=== PATIENT | female | born 1980 | race African-American/Black ===

== ENCOUNTER 2016-08-16 11:29 | Outpatient (CLI) | payer MEDICAID ==
--- NOTE | 2016-08-16 12:00 | L&D Flow Sheet ---
LD Flowsheet Datetime Report Generated by CPN: 08/16/2016 12:00 Datetime: 08/16/2016 11:54 Vital Signs NBP Sys/Estefania/Mean (mmHg): 113 (QS system process) : 56 (QS system process) : 78 (QS system process) Pulse: 70 (QS system process) Pain Pain Scale: 3 (Thania Sheryl, RN) Pain Presence: Intermittent (Thania Baileticia, RN) Pain Type: Cramping (Thania Baidy, RN) Pain Location: Abdomen; Back (Thania Baileticia, RN) Pain Goal: 1 (Thania Baidy, RN) Vaginal Exam Membrane Status: Intact (Thania Madrigalleticia, RN) Vaginal Bleeding: None (Thania Baileticia, RN) Maternal Assessment Level of Consciousness: Fully Conscious (Thania Sheryl, RN) DTR's/Clonus: DTRs 2+; No Clonus (Thania Saucedo, RN) Headache: Denies (Thania Saucedo, RN) Breath Sounds, Left: Clear and Equal (Thania Saucedo RN) Breath Sounds, Right: Clear and Equal (Thania Saucedo RN) Nausea/Vomiting: Denies (Thania Saucedo RN) RUQ Epigastric Pain: Denies (Thania Saucedo RN) Patient Care Patient Position/Activity: Left Tilt; Semi-Fowlers (Thania Saucedo RN) Teaching Instructional Method: Verbal; Patient Instructed; Verbalized Understanding (Thania Saucedo RN) Plan of Care: Plan of Care Discussed (Thania Saucedo RN) Unit Routine: [place] to Room; Call Oscar; Bed; Monitoring (Thania Saucedo RN)
[2016-08-16 12:25] LABS: APPEARANCE,URINE CLEAR; BILIRUBIN,URINE NEGATIVE (NEGATIVE); GLUCOSE, URINE NEGATIVE (NEGATIVE); KETONES,URINE NEGATIVE (NEGATIVE); LEUKOCYTE ESTERASE,URINE TRACE (NEGATIVE); NITRITE,URINE NEGATIVE (NEGATIVE); PROTEIN,URINE NEGATIVE (NEGATIVE); URINE SPECIFIC GRAVITY 1.017; UROBILINOGEN,URINE NEGATIVE mg/dL (<2.0)
[2016-08-16 12:40] LABS: URINE BARBITURATES SCREEN NEGATIVE; URINE METHADONE SCREEN NEGATIVE; URINE PHENCYCLIDINE SCREEN NEGATIVE
[2016-08-16 15:00] LABS: CHLAM PCR NOT DETECTED (NOT DETECT)
--- NOTE | 2016-08-18 09:52 | Antepartum Discharge Summary ---
Antepartum DC Datetime Report Generated by CPN: 08/18/2016 09:52 DIET/ACTIVITY/RESTRICTIONS Diet: Regular (08/16/2016 15:04:Thania Saucedo, RN) Activity: May Be Up to Bathroom; May Be Up for Meals; May Shower (08/16/2016 15:04:Thania Saucedo, RN) Activity Restrictions: No Exercising; No Lifting (08/16/2016 15:04:Thania Sheryl, RN) TEACHING/INSTRUCTIONS/REFERRALS Instructions Given To: pt (08/16/2016 15:04:Thania Saucedo RN) Instructions Understood: Patient Verbalized Understanding (08/16/2016 15:04:Thania Saucedo RN) Referrals: None (08/16/2016 15:04:Thania Saucedo RN) Educational Materials- Other: labor care notes (08/16/2016 15:04:Thania Saucedo RN) DISCHARGE INFORMATION Discharged AMA: No (08/16/2016 15:04:Thania Saucedo RN) Discharge Date/Time: 08/16/2016 15:07 (08/16/2016 15:04:Thania Saucedo RN) Discharged To: Home (08/16/2016 15:04:Thania Saucedo RN) Discharge Provider Name: Dr Carbajal (08/16/2016 15:04:Thania Saucedo RN) Accompanied By: (08/16/2016 15:04:Thania Saucedo RN) Discharge Method: Ambulatory (08/16/2016 15:04:Thania Saucedo RN) Condition: Stable (08/16/2016 15:04:Thania Saucedo RN) FOLLOW UP INFORMATION Follow Up With: [facility] (08/16/2016 15:04:Thania Saucedo RN) Follow Up On: As Scheduled (08/16/2016 15:04:Thania Saucedo RN) Follow Up Phone Number: [facility] - (08/16/2016 15:04:Thania Saucedo RN)
--- NOTE | 2016-08-18 09:53 | L&D Flow Sheet ---
LD Flowsheet Datetime Report Generated by CPN: 08/18/2016 09:53 Datetime: 08/16/2016 14:56 Communication Communication Comments: Dr Carbajal notified of lab results, pt decrease in pain and vitals. Orders received for d/c home f/u in office as scheduled, hold off on bp meds until seen in the office on Thurs. Pt denies any questions at this time. (Thania Saucedo, RN) Datetime: 08/16/2016 14:54 Vital Signs NBP Sys/Estefania/Mean (mmHg): 101 (QS system process) : 53 (QS system process) : 75 (QS system process) Pulse: 67 (QS system process) Datetime: 08/16/2016 14:39 Vital Signs NBP Sys/Estefania/Mean (mmHg): 96 (QS system process) : 53 (QS system process) : 71 (QS system process) Pulse: 81 (QS system process) Datetime: 08/16/2016 14:30 Uterine Activity Monitor Mode: External; Palpation (Thania Baidy, RN) Frequency (min): denies (Thania Baidy, RN) Assessment A Monitor Mode: External US (Thania Baidy, RN) FHR Baseline Rate : 140 (Thania Baidy, RN) Variability: Moderate 6-25 bpm (Thania Baidy, RN) Accelerations: 15X15 (Thania Baidy, RN) Decelerations: None (Thania Baidy, RN) Datetime: 08/16/2016 14:25 Vital Signs NBP Sys/Estefania/Mean (mmHg): 98 (QS system process) : 51 (QS system process) : 71 (QS system process) Pulse: 69 (QS system process) Datetime: 08/16/2016 14:09 Vital Signs NBP Sys/Estefania/Mean (mmHg): 98 (QS system process) : 51 (QS system process) : 72 (QS system process) Pulse: 66 (QS system process) Datetime: 08/16/2016 14:00 Uterine Activity Monitor Mode: External; Palpation (Thania Baidy, RN) Frequency (min): denies (Thania Baidy, RN) Assessment A Monitor Mode: External US (Thania Baidy, RN) FHR Baseline Rate : 145 (Thania Baidy, RN) Variability: Moderate 6-25 bpm (Thania Baidy, RN) Accelerations: None (Thania Baidy, RN) Decelerations: None (Thania Baidy, RN) Datetime: 08/16/2016 13:54 Vital Signs NBP Sys/Estefania/Mean (mmHg): 96 (QS system process) : 52 (QS system process) : 71 (QS system process) Pulse: 63 (QS system process) Datetime: 08/16/2016 13:53 Monitor Interventions for FHR: Ultrasound Adjusted (Thania Baidy, RN) Datetime: 08/16/2016 13:40 Vital Signs NBP Sys/Estefania/Mean (mmHg): 98 (QS system process) : 54 (QS system process) : 73 (QS system process) Pulse: 69 (QS system process) Datetime: 08/16/2016 13:30 Uterine Activity Monitor Mode: External; Palpation (Thania Saucedo, TEENA) Frequency (min): denies (Thania Saucedo, RN) Assessment A Monitor Mode: External US (Thania Saucedo RN) FHR Baseline Rate : 145 (Thania Saucedo RN) Variability: Moderate 6-25 bpm (Thania Baidy, RN) Accelerations: None (Thania Baidy, RN) Decelerations: None (Thania Baidy, RN) Datetime: 08/16/2016 13:09 Vital Signs NBP Sys/Estefania/Mean (mmHg): 107 (QS system process) : 56 (QS system process) : 77 (QS system process) Pulse: 68 (QS system process) Datetime: 08/16/2016 13:00 Uterine Activity Monitor Mode: External; Palpation (Thania Baidy, RN) Frequency (min): denies (Thania Baidy, RN) Assessment A Monitor Mode: External US (Thania Baidy, RN) FHR Baseline Rate : 145 (Thania Baidy, RN) Variability: Moderate 6-25 bpm (Thania Baidy, RN) Accelerations: None (Thania Baidy, RN) Decelerations: None (Thania Baidy, RN) Datetime: 08/16/2016 12:54 Vital Signs NBP Sys/Estefania/Mean (mmHg): 106 (QS system process) : 58 (QS system process) : 78 (QS system process) Pulse: 74 (QS system process) Datetime: 08/16/2016 12:39 Vital Signs NBP Sys/Estefania/Mean (mmHg): 107 (QS system process) : 56 (QS system process) : 78 (QS system process) Pulse: 76 (QS system process) Datetime: 08/16/2016 12:30 Uterine Activity Monitor Mode: External; Palpation (Thania Baidy, RN) Frequency (min): denies (Thania Baidy, RN) Assessment A Monitor Mode: External US (Thania Kaitlindy, RN) FHR Baseline Rate : 145 (Thania Kaitlindy, RN) Variability: Moderate 6-25 bpm (Thania Baidy, RN) Decelerations: None (Thania Baidy, RN) Datetime: 08/16/2016 12:24 Vital Signs NBP Sys/Estefania/Mean (mmHg): 105 (QS system process) : 51 (QS system process) : 75 (QS system process) Pulse: 74 (QS system process) Datetime: 08/16/2016 12:09 Vital Signs NBP Sys/Estefania/Mean (mmHg): 110 (QS system process) : 56 (QS system process) : 80 (QS system process) Pulse: 88 (QS system process) Datetime: 08/16/2016 12:06 Vaginal Exam Exam by: Dr Neilsen (Thania Saucedo, RN) Cervix, Consistency: Soft (Thania Sheryl, RN) Vaginal Exam Comments: 1/thick/high (Thania Saucedo, RN) Datetime: 08/16/2016 11:54 Vital Signs NBP Sys/Estefania/Mean (mmHg): 113 (QS system process) : 56 (QS system process) : 78 (QS system process) Pulse: 70 (QS system process) Pain Pain Scale: 3 (Thania Saucedo RN) Pain Presence: Intermittent (Thania Suacedo RN) Pain Type: Cramping (Thania Saucedo RN) Pain Location: Abdomen; Back (Thania Saucedo RN) Pain Goal: 1 (Thania Saucedo RN) Membrane Status: Intact (Thania Saucedo RN) Vaginal Bleeding: None (Thania Saucedo RN) Maternal Assessment Level of Consciousness: Fully Conscious (Thania Saucedo, RN) DTR's/Clonus: DTRs 2+; No Clonus (Thania Saucedo, RN) Headache: Denies (Thania Saucedo, RN) Breath Sounds, Left: Clear and Equal (Thania Saucedo, RN) Breath Sounds, Right: Clear and Equal (Thania Saucedo, RN) Nausea/Vomiting: Denies (Thania Saucedo, RN) RUQ Epigastric Pain: Denies (Thania Saucedo, RN) Patient Care Patient Position/Activity: Left Tilt; Semi-Fowlers (Thania Saucedo, RN) Teaching Instructional Method: Verbal; Patient Instructed; Verbalized Understanding (Thania Saucedo RN) Plan of Care: Plan of Care Discussed (Thania Saucedo RN) Unit Routine: [place] to Room; Call Oscar; Bed; Monitoring (Thania Saucedo RN)
--- NOTE | 2016-08-18 09:53 | L&D Discharge Summary ---
OB Discharge Summary Datetime Report Generated by CPN: 08/18/2016 09:53 DISCHARGE DIAGNOSIS Diagnosis/Symptoms: Other Diagnoses/Symptoms Other: ctx Gestation: 26.6 Number of Babies in Womb: 1 Parity: 4 DIET/ACTIVITY/RESTRICTIONS Diet: Regular Activity: May Be Up to Bathroom; May Be Up for Meals; May Shower Activity Restrictions: No Exercising; No Lifting TEACHING/INSTRUCTIONS/REFERRALS Instructions Given To: pt Instructions Understood: Patient Verbalized Understanding Referrals: None Educational Materials- Other: labor care notes DISCHARGE INFORMATION Discharged AMA: No Discharge Date/Time: 08/16/2016 15:07 Discharged To: Home Discharge Provider Name: Dr Thorntonmarsha Accompanied By: Discharge Method: Ambulatory Condition: Stable FOLLOW UP INFORMATION Follow Up With: [facility] Follow Up On: As Scheduled Follow Up Phone Number: [facility] -
--- NOTE | 2016-08-18 09:56 | L&D General Admission ---
General Admit Datetime Report Generated by CPN: 08/18/2016 09:56 INFORMATION Patient Age: 35 (08/16/2016 11:30:QS system process) EDC: 11/16/2016 00:00 (08/16/2016 11:39:Thania Saucedo RN) : 5 (08/16/2016 11:39:Thania Saucedo RN) Para: 4 (08/16/2016 11:39:Thania Saucedo RN) Term: 2 (08/16/2016 11:39:Thania Saucedo RN) : 2 (08/16/2016 11:39:Thania Saucedo RN) Spontaneous Abortions: 0 (08/16/2016 11:39:Thania Saucedo RN) Induced Abortions: 0 (08/16/2016 11:39:Thania Saucedo RN) Livin (08/16/2016 11:39:Thania Saucedo RN) Cesareans: 0 (08/16/2016 11:39:Thania Saucedo RN) VBACs: 0 (08/16/2016 11:39:Thania Saucedo RN) Ectopic: 0 (08/16/2016 11:39:Thania Saucedo RN) Multiple Births: 0 (08/16/2016 11:39:Thania Saucedo RN) Baby, Number in Womb: 1 (08/16/2016 11:39:Thania Saucedo RN) ALLERGIES Medication Allergies: No Known Allergies (02/29/2016) (08/16/2016 11:30:QS system process) COMMUNICATION Primary Language: Cook Islander (08/16/2016 11:39:Thania Saucedo RN) Medical Tx Preferred Language: [place] Islander (08/16/2016 11:39:Thania Saucedo RN) DEMOGRAPHICS Address: [facility] [address] [place] [address] (08/16/2016 11:30:QS system process) Zipcode: [address] (08/16/2016 11:30:QS system process) Home (08/16/2016 11:30:QS system process) Work (08/16/2016 11:30:QS system process) SSN: [id number] (08/16/2016 11:30:QS system process) Next of Kin Name: EZEQUIEL SAMUEL (08/16/2016 11:30:QS system process) Next of Kin (08/16/2016 11:30:QS system process) Next of Kin Relationship: SPO (08/16/2016 11:30:QS system process) Date of : 1980 (08/16/2016 11:30:QS system process) Marital Status: (08/16/2016 11:30:QS system process) Sex: Female (08/16/2016 11:30:QS system process) Race: (08/16/2016 11:30:QS system process) Ethnicity: Non- or (08/16/2016 11:30:QS system process) Anglican: None (08/16/2016 11:30:QS system process)
--- NOTE | 2016-08-18 09:57 | L&D Current Admission ---
Current Admit Datetime Report Generated by CPN: 08/18/2016 09:57 ADMISSION INFORMATION Chief Complaint: Contractions (08/16/2016 11:54:Thania Saucedo, RN)
== END 2016-08-16 15:07 | disposition home or self-care (01) ==
LOC: LC 11:29
PROVIDERS: ATTEND Specialist
PROC: 4A1HXCZ Monitoring of Products of Conception, Cardiac Rate, External Approach (ICD-10-PCS; principal; 2016-08-16)
DX: O47.02 False labor before 37 completed weeks of gestation, second trimester (principal); Z3A.26 26 weeks gestation of pregnancy
CPT/HCPCS: 59899; 87210; 81001; 87081; 87491; 87591; G0479; 80307

== ENCOUNTER 2016-11-05 18:11 | Inpatient (IN) | payer MEDICAID ==
--- NOTE | 2016-11-05 20:01 | L&D Flow Sheet ---
LD Flowsheet Datetime Report Generated by CPN: 11/05/2016 20:00 Datetime: 11/05/2016 19:13 Communication Communication Comments: Report to B. Ho RN (Emelia Henley, RN) Datetime: 11/05/2016 18:52 Communication Communication Comments: Monitors removed (Emelia Henley, RN) Datetime: 11/05/2016 18:50 Communication Communication Comments: Report given to Dr. Durand. Orders to walk pt for one hour and recheck cervix (Emelia Henley, RN) Datetime: 11/05/2016 18:28 Vaginal Exam Dilatation (cm): 4.0 (Emelia Henley, RN) Effacement (%): 80 (Emelia Henley, RN) Station: -2 (Emelia Henley RN) Exam by: Henrique Henley RN (Emelia Henley RN) Datetime: 11/05/2016 18:25 Vital Signs NBP Sys/Estefania/Mean (mmHg): 121 (QS system process) : 56 (QS system process) : 81 (QS system process) Pulse: 93 (QS system process) Datetime: 11/05/2016 18:15 Uterine Activity Frequency (min): Pt states 4 minutes apart (Emelia Henley, RN) Pain Pain Scale: 4 (Emelia Henley, RN) Pain Presence: Intermittent (Emelia Henley, RN) Pain Type: Contraction (Emelia Henley, RN) Pain Location: Abdomen (Emelia Henley, RN) Vaginal Bleeding: None (Emelia Henley, RN) Maternal Assessment Level of Consciousness: Fully Conscious (Emelia Kale, RN) DTR's/Clonus: DTRs 2+; No Clonus (Emelia Henley, RN) Headache: Denies (Emelia Henley, RN) Breath Sounds, Left: Clear and Equal (Emelia Henley, RN) Breath Sounds, Right: Clear and Equal (Emelia Kale, RN) Nausea/Vomiting: Denies (Emelia Henley, RN) RUQ Epigastric Pain: Denies (Emelia Henley, RN) Teaching Instructional Method: Verbal; Patient Instructed; Family/Support Person Instructed; Verbalized Understanding (Emelia Henley RN) Plan of Care: Plan of Care Discussed (Emelia Henley RN) Unit Routine: [place] to Room; Call Oscar; Bed; Handwashing; Monitoring; Bathroom Privileges (Emelia Henley RN)
[2016-11-05 21:06] LABS: ABSOLUTE BASOPHILS # (AUTO) 0.1 10^3/uL (0.0-0.2); ABSOLUTE EOSINOPHILS # (AUTO) 0.2 10^3/uL (0.0-0.6); ABSOLUTE LYMPHOCYTES (AUTO) 1.8 10^3/uL (0.5-4.7); BASOPHILS % (AUTO) 0.6 % (0-2); EOSINOPHILS % (AUTO) 1.7 % (0-6); HEMATOCRIT 29.7 % (36.0-47.0); HGB HCT DIFFERENCE 0.3; LYMPHOCYTES % (AUTO) 16.2 % (13-45); MEAN CORPUSCULAR HEMOGLOBIN 30.3 pg (27.0-33.4); MEAN CORPUSCULAR HGB CONC 33.7 g/dL (32.0-36.0); MEAN CORPUSCULAR VOLUME 90 fl (80-97); MONOCYTES % (AUTO) 9.2 % (3-13); RED CELL DISTRIBUTION WIDTH 14.1 % (11.5-14.0); SEGMENTED NEUTROPHILS % (AUTO) 72.3 % (42-78)
[2016-11-05] MEDS: RINGERS SOLUTION,LACTATED 1,000 ML IV PRN ×2 (21:35→22:23)
[2016-11-05] MEDS ORDERED: MISOPROSTOL 0.2 MG TABLET ONE (21:39)
[2016-11-05] MEDS ORDERED: LIDOCAINE 1% INJ-PF (10 MG/ML) 30 ML SDV ONE (21:39)
[2016-11-05] MEDS ORDERED: OXYTOCIN/NORMAL SALINE 20 UNIT/1,000 ML RTUINJ ONE (21:39)
[2016-11-05] MEDS ORDERED: EPHEDRINE SULFATE INJ 50 MG/1 ML AMPULE ONE (21:39)
[2016-11-05] MEDS ORDERED: FENTANYL/BUPIVACAINE/NS/PF 200 MCG/100 ML RTUINJ EPI ONE (21:39)
[2016-11-05] MEDS ORDERED: BUPIVACAINE HCL 0.25 % INJ/PF (2.5 MG/1 ML) 30 ML VIAL ONE (21:40)
[2016-11-05] MEDS ORDERED: BUPIVACAINE HCL 0.25 % INJ/PF (2.5 MG/1 ML) 30 ML VIAL INFIL ONE (21:42)
[2016-11-05] MEDS ORDERED: BENZOIN/ALOE VERA/STORAX/TOLU TINCTURE 60 ML TP PRN (21:42)
[2016-11-05] MEDS ORDERED: EPHEDRINE SULFATE INJ 50 MG/1 ML AMPULE IV PRN (21:42)
[2016-11-05] MEDS ORDERED: FENTANYL/BUPIVACAINE/NS/PF 100 ML EPI PRN (21:42)
[2016-11-05] MEDS ORDERED: OXYTOCIN/NORMAL SALINE 1,000 ML IV PRN (21:42)
[2016-11-05 23:29] LABS: APPEARANCE,URINE SLIGHTLY-CLOUDY; BILIRUBIN,URINE NEGATIVE (NEGATIVE); GLUCOSE, URINE NEGATIVE (NEGATIVE); KETONES,URINE TRACE mg/dL (NEGATIVE); LEUKOCYTE ESTERASE,URINE SMALL (NEGATIVE); NITRITE,URINE NEGATIVE (NEGATIVE); PROTEIN,URINE NEGATIVE (NEGATIVE); URINE SPECIFIC GRAVITY 1.017; UROBILINOGEN,URINE NEGATIVE mg/dL (<2.0)
[2016-11-05 23:46] LABS: URINE BARBITURATES SCREEN NEGATIVE; URINE METHADONE SCREEN NEGATIVE; URINE OPIATES LOW NEGATIVE; URINE PHENCYCLIDINE SCREEN NEGATIVE
[2016-11-06] MEDS: RINGERS SOLUTION,LACTATED 1,000 ML IV PRN (00:37)
[2016-11-06] MEDS ORDERED: ZOLPIDEM TARTRATE 5 MG TABLET PO PRN (01:19)
[2016-11-06] MEDS ORDERED: DIBUCAINE 1% OINTMENT 28 GM TP PRN (01:19)
[2016-11-06] MEDS ORDERED: ACETAMINOPHEN WITH CODEINE #3 TABLET PO PRN ×2 (01:19)
[2016-11-06] MEDS ORDERED: MEASLES,MUMPS&RUBELLA VACC/PF 0.5 ML VIAL SUBCUT PRN (01:19)
[2016-11-06] MEDS ORDERED: OXYTOCIN/NORMAL SALINE 1,000 ML IV PRN (01:19)
[2016-11-06] MEDS ORDERED: DIPH/PERTUSS(ACELL)/TETANUS VAC/PF 0.5 ML SYR (>=10YO) IM PRN (01:19)
[2016-11-06] MEDS ORDERED: BENZOCAINE/MENTHOL AEROSOL SPRAY 56 ML TOP PRN (01:19)
[2016-11-06] MEDS ORDERED: IBUPROFEN 800 MG TABLET ONE (02:10)
--- NOTE | 2016-11-06 02:30 | Delivery Summary ---
Del Sum A-C Datetime Report Generated by CPN: 11/06/2016 02:30 ADMISSION DATA Chief Complaint: Uterine Contractions Admission Impression: Term, Intrauterine ; Active Labor Admit Provider Comments: 36yo at 38+3ega with c/b AMA and h/o Delivery presents for regular uterine ctx that are increasing in strength. Cvx initially unchanged upon presentation then after ambulation she changes her cervical dilation to 5-6cm. GBS negative. She was admitted to L_D. She desires epidural. She has a h/o Chlamydia with a good DAYLIN. Admit for labor. Anticipate . DELIVERY PERSONNEL Delivery Doctor:: Merlene Durand MD Labor and Delivery Nurse:: Marcia Ho RNsales support specialist Nurse:: Bijal High RN [facility]/SWEATER OPERATOR: Avery Hutchins SWEATER OPERATOR MATERNAL INFORMATION Delivery Anesthesia: Epidural Medications After Delivery: Pitocin Drip 20 Units/1000ml NSS Provider Comments: VFI delivered in LOP presentation. No nuchal cord. Shoulders and body delivered w/o difficulty. Cord doubly clamped and cut and to maternal abdomen for NRP. Placenta delivered intact spontaneously. FF at U. Good hemostasis. Apgars 8/9. weight pending. NO HSV lesions or prodrome prior to delivery. On HSV suppression. LABOR SUMMARY EDC: 11/16/2016 00:00 No. Babies in Womb: 1 LABOR INFORMATION Onset of Labor: 11/05/2016 18:28 Complete Dilatation: 11/06/2016 00:45 Group B Beta Strep: Negative Steroids Given: None Reason Steroids Not Administered: Not Applicable MEMBRANES Membranes Rupture Method: Artificial Rupture of Membranes: 11/06/2016 22:39 Length of Rupture (hr): -21.70 Amniotic Fluid Color: Clear Amniotic Fluid Amount: Small STAGES OF LABOR Stage 1 hr: 6 Stage 1 min: 17 Stage 2 hr: 0 Stage 2 min: 12 Stage 3 hr: 0 Stage 3 min: 5 Total Time in Labor hr: 6 Total Time in Labor min: 34 VAGINAL DELIVERY Episiotomy: None Laceration Extension: N/A Laceration Type: None Laceration Repair: Not Applicable Sponge Count Correct: Yes Sharps Count Correct: N/A BABY A INFORMATION Infant Delivery Date/Time: 11/06/2016 00:57 Method of Delivery: Vaginal Born in Route : No : N/A Forceps: N/A Vacuum Extraction: N/A Shoulder Dystocia : No PRESENTATION/POSITION BABY A Presentation: Cephalic Cephalic Presentation: Vertex Vertex Position: Left Occipital Posterior Breech Presentation: N/A PLACENTA INFORMATION BABY A Placenta Delivery Time : 11/06/2016 01:02 Placenta Method of Delivery: Spontaneous Placenta Status: Delivered SCORES BABY A Heart Rate 1 min: >100 bpm Resp Effort 1 min: Good Cry Reflex Irritability 1 min: Cough or Sneeze or Pulls Away Muscle Tone 1 min: Some Flexion of Extremities Color 1 min: Body Babbie, Extremities Blue Resuscitation Effort 1 min: Tactile Stimulation SCORE 1 MIN: 8 Heart Rate 5 min: >100 bpm Resp Effort 5 min: Good Cry Reflex Irritability 5 min: Cough or Sneeze or Pulls Away Muscle Tone 5 min: Active Motion Color 5 min: Body Babbie, Extremities Blue Resuscitation Effort 5 min: Tactile Stimulation SCORE 5 MIN: 9 INFORMATION BABY A Gestational Age at Delivery: 38.4 Gestational Status: Early Term- 37- 38.6 Weeks Infant Outcome : Liveborn Condition : Stable Sex: Female IDENTIFICATION BABY A Infant Verification Date/Time: 11/06/2016 01:07 ID Band Number: [id number] Mother's Name Verified: Yes RN Verifying : R Anlia, RNC Additional Verifying Personnel: B Ho, RN WEIGHT/LENGTH BABY A Birthweight (gm): 2880 Infant Weight (lb): 6 Weight (oz): 6 Infant Length (in): 19.00 Length (cm): 48.26 CORD INFORMATION BABY A No. Cord Vessels: 3 Nuchal Cord : N/A Cord Blood Taken: Yes-For Eval (Mom's Blood Type - or O+) Infant Suction: Mouth; Nose ASSESSMENT BABY A Complications: Multiple Variable Decels Physical Findings- Other: see nursery notes Respirations: Nasal Flaring Skin to Skin: Yes Skin to Skin Time (min): 15 Travelift Operator/ALS Called : No Infant Care By: Rosa Erickson RN Transferred To: Nursery SIGNATURES Signature: Electronically signed by Merlene Durand MD ([facility]) on 11/06/2016 at 01:10 with User ID: [email or web address]
--- NOTE | 2016-11-06 03:52 | Admission Physical ---
Datetime Report Generated by CPN: 11/06/2016 03:52 CURRENT ADMISSION Chief Complaint: Uterine Contractions Admit Plan: Admit to Unit; Initiate Labor Protocol ALLERGIES Medication Allergies: No Medication Allergies: No Known Allergies (11/05/2016) Medication Allergies: No Known Allergies (02/29/2016) Latex: No Latex Allergies Food Allergies: none Environmental Allergies: none OBSTETRICAL HISTORY EDC: 11/16/2016 00:00 : 6 Para: 4 Term: 2 : 2 SAB: 0 IAB: 0 Ectopic: 0 Livin Cesareans: 0 VBACs: 0 Multiple Births: 0 Gestational Diabetes: No Rh Sensitization: No Incompetent Cervix: No NARA: No Infertility: No ART Treatment: No Uterine Anomaly: No IUGR: No Hx Previous C/S: No Macrosomia: No Hx Loss/Stillborn: No PIH: No Hx : No Placenta Previa/Abruption: No Depression/PP Depression: No PTL/PROM: Yes Post Hemorrhage: No Current Procedures: Ultrasound; NST Obstetrical History Comments: G1- 2003 male 40 weeks 7lb0oz G2- 2006 male 34 weeks 5lb4oz PROM@34 weeks G3- 2008 male 36 weeks 5lb5oz PROM@36 weeks G4- 2012 SAB - 2013 male 38 weeks 6lb8oz G6- current currently taking p17 SEE RECORDS Alcohol: No Marijuana : No Cocaine: No Other Illicit Drugs: No Cigarettes: Never Smoker. 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 Surgery: No Heart Disease: No Hosp/Surgery: Yes Autoimmune Disorder: No Anesthetic Complications: No Kidney Disease: Yes Abnormal Pap Smear: No Neuro/Epilepsy: No Psychiatric Disorders: No Other Medical Diseases: No Hepatitis/Liver Disease: No Significant Family History: No Varicosities/Phlebitis: No Trauma/Violence : No Thyroid Dysfunction: No Medical History Comments: CHILDBIRTH, kidney stones INFECTIOUS HISTORY Gonorrhea: No Genital Herpes: Yes Chlamydia: No Tuberculosis: No Syphilis: No Hepatitis: No HIV/AIDS Exposure: No Rash or Viral Illness: No HPV: No Infectious History Comments: HSV - 2008 PHYSICAL EXAM General: Normal HEENT: Normal Neurologic: Normal Thyroid: Normal Heart: Normal Lungs: Normal Breast: Deferred Back: Normal Abdomen: Normal Genitourinary Exam: Normal Extremities: Normal DTRs: Normal Pelvic Type: Adequate Physical Exam Comments: pelvis proven to 7# VAGINAL EXAM Dilatation: 6 Effacement: 75 Station: -2 MEMBRANES Pooling: Negative Membranes: Intact FETUS A EGA: 38.3 FHR- Baseline: 150 Variability: Moderate 6-25bpm Accelerations: 15X15 Decelerations: None FHR Category: Category I Presentation: Vertex Admit Comment: 36yo at 38+3ega with c/b AMA and h/o Delivery presents for regular uterine ctx that are increasing in strength. Cvx initially unchanged upon presentation then after ambulation she changes her cervical dilation to 5-6cm. GBS negative. She was admitted to L_D. She desires epidural. She has a h/o Chlamydia with a good DAYLIN. Admit for labor. Anticipate . PLANS FOR LABOR AND DELIVERY Labor and Delivery: None Pain Management: Epidural Feeding Preference: Both Benefit of Breast Feed Discussed: Yes Circumcision: N/A INFORMED CONSENT Informed Consent Obtained: Vaginal Delivery; Vacuum/Forceps Assist; Risks, Benefits and Alternatives Discussed Signature: with User ID: [email or web address]
[2016-11-06] MEDS ORDERED: INFLUENZA ADLT QUAD (36MOS+) 2016-17 VAC 0.5 ML SYR IM PRN (04:52)
[2016-11-06] MEDS: IBUPROFEN 800 MG TABLET PO SCH ×3 (05:39→21:02)
--- NOTE | 2016-11-06 07:01 | L&D Flow Sheet ---
LD Flowsheet Datetime Report Generated by CPN: 11/06/2016 07:00 Datetime: 11/06/2016 03:00 Stage of : Recovery (Marcia Ho, RN) Respirations: 18 (Marcia Ho, RN) Pain Scale: 0 (Marcia Ho, RN) Pain Presence: None/Denies (Marcia Ho, RN) Pain Type: N/A (Marcia Ho, RN) Datetime: 11/06/2016 02:59 NBP Sys/Estefania/Mean (mmHg): 110 (QS system process) : 54 (QS system process) : 78 (QS system process) Pulse: 75 (QS system process) Datetime: 11/06/2016 02:45 NBP Sys/Estefania/Mean (mmHg): 113 (QS system process) : 58 (QS system process) : 83 (QS system process) Pulse: 77 (QS system process) Pain Scale: 0 (Marcia Ho, RN) Pain Presence: None/Denies (Marcia Ho, RN) Pain Type: N/A (Marcia Ho, RN) Datetime: 11/06/2016 02:30 Respirations: 16 (Marcia Ho, RN) Pain Scale: 0 (Marcia Ho, RN) Pain Presence: None/Denies (Marcia Ho, RN) Pain Type: N/A (Marcia Ho, RN) Datetime: 11/06/2016 02:29 NBP Sys/Estefania/Mean (mmHg): 110 (QS system process) : 68 (QS system process) : 83 (QS system process) Pulse: 67 (QS system process) Datetime: 11/06/2016 02:15 NBP Sys/Estefania/Mean (mmHg): 112 (QS system process) : 57 (QS system process) : 81 (QS system process) Pulse: 68 (QS system process) Respirations: 16 (Marcia Ho, RN) Pain Scale: 0 (Marcia Oh, RN) Pain Presence: None/Denies (Marcia Ho, RN) Pain Type: N/A (Marcia Ho, RN) Datetime: 11/06/2016 02:08 Stage of : Recovery (Marcia Ho, RN) Datetime: 11/06/2016 02:00 Stage of : Recovery (Marcia Ho, RN) Pain Scale: 0 (Marcia Ho, RN) Pain Presence: None/Denies (Marcia Ho, RN) Pain Type: N/A (Marcia Ho, RN) Datetime: 11/06/2016 01:45 Stage of : Recovery (Marcia Ho, RN) NBP Sys/Estefania/Mean (mmHg): 107 (QS system process) : 60 (QS system process) : 78 (QS system process) Pulse: 75 (QS system process) Respirations: 18 (Marcia Ho, RN) Pain Scale: 0 (Marcia Ho, RN) Pain Presence: None/Denies (Marcia Ho, RN) Pain Type: N/A (Marcia Ho, RN) Datetime: 11/06/2016 01:30 Stage of : Recovery (Marcia Ho, RN) Datetime: 11/06/2016 01:29 NBP Sys/Estefania/Mean (mmHg): 108 (QS system process) : 53 (QS system process) : 77 (QS system process) Pulse: 73 (QS system process) Datetime: 11/06/2016 01:15 Stage of : Recovery (Bijal Anila, RN) NBP Sys/Estefania/Mean (mmHg): 117 (QS system process) : 59 (QS system process) : 82 (QS system process) Pulse: 78 (QS system process) Respirations: 20 (Bijal High RN) Pain Scale: 1 (Bijal High RN) Pain Presence: Intermittent (Bijal High RN) Pain Type: Cramping (Bijal High RN) Pain Location: Abdomen (Bijal High, RN) Datetime: 11/06/2016 00:58 NBP Sys/Estefania/Mean (mmHg): 109 (QS system process) : 56 (QS system process) : 76 (QS system process) Pulse: 72 (QS system process) LaborFlag: Labor (QS system process) Datetime: 11/06/2016 00:57 Stage of : Labor (Marcia Ho, RN) Monitor Mode: External; Palpation (Marcia Ho, RN) Frequency (min): 2-4 (Marcia Ho, RN) Quality: Strong (Marcia Ho, RN) Duration (sec): 90-120 (Marcia Ho, RN) Pattern: Normal: <= 5 Contractions in 10 Minutes (Marcia Ho, RN) Resting Tone (Palpate): Relaxed (Marcia Ho, TEENA) Monitor Mode: External US (Marcia Ho RN) Monitor Interventions for FHR: Ultrasound Adjusted (Marcia Ho RN) FHR Baseline Rate : 115 (Marcia Ho, RN) Variability: Moderate 6-25 bpm (Marcia Ho, RN) Accelerations: 15X15 (Marcia Ho RN) Decelerations: Variable (Marcia Ho RN) Pushing: Coached on Pushing (Marcia Ho RN) Pushing Position: Pushing with Contractions (Marcia Ho RN) Pushing Progress: Descent with Pushing; with Pushing (Marcia Ho RN) Stage 2 Comments: Viable female delivered KATHRIN by Dr Durand (Marcia Ho, TEENA) Communication: RN at Bedside; RN Reviewed Strip (Marcia Ho RN) Datetime: 11/06/2016 00:53 Pulse: 101 (QS system process) SpO2 (%): 84 (QS system process) LaborFlag: Labor (QS system process) Datetime: 11/06/2016 00:52 Pulse: 80 (QS system process) SpO2 (%): 99 (QS system process) LaborFlag: Labor (QS system process) Datetime: 11/06/2016 00:51 Pushing: Coached on Pushing; Urge to Push (Crystal Shay, RN) Pushing Position: Pushing with Contractions (Crystal Barnstead, RN) Datetime: 11/06/2016 00:45 Stage of : Labor (Marcia Ho, RN) Monitor Mode: External; Palpation (Marcia Ho, RN) Frequency (min): 2-3 (Marcia Ho, RN) Quality: Strong (Marcia Ho, RN) Duration (sec): 80-120 (Marcia Ho, RN) Pattern: Normal: <= 5 Contractions in 10 Minutes (Marcia Ho, RN) Resting Tone (Palpate): Relaxed (Marcia Ho, RN) Monitor Mode: External US (Marcia Ho, RN) FHR Baseline Rate : 115 (Marcia Ho, RN) Variability: Moderate 6-25 bpm (Marcia Ho, RN) Accelerations: 15X15 (Marcia Ho, RN) Decelerations: Early; Variable (Marcia Ho, RN) Dilatation (cm): 10.0 (Marcia Ho, RN) Effacement (%): 100 (Marcia Ho, RN) Station: 1 (Marcia Ho RN) Exam by: Dr Durand (Marcia Ho, RN) Communication: RN Reviewed Strip (Marcia Ho, RN) Datetime: 11/06/2016 00:43 Communication: Provider at Bedside (Kayla Day RN) Datetime: 11/06/2016 00:42 I/O Interventions: Kenney Discontinued (Bijal High RN) Patient Care Comments: 275 ml (Bijal High RN) Datetime: 11/06/2016 00:41 Communication Comments: Nursery notifed (Kayla Day RN) Communication Comments: Dr. Durand notified of pt's progress. (Bijal High RN) Datetime: 11/06/2016 00:40 Dilatation (cm): 9.5 (Bijal High RN) Exam by: Angela High RN (Bijal High RN) Vaginal Exam Comments: Anterior lip reducable (Bijal High RN) Datetime: 11/06/2016 00:31 Dilatation (cm): 9.0 (Bijal High RN) Station: 1 (Bijal High RN) Exam by: MARILIN Lopez (Bijal High RN) Vaginal Bleeding: Moderate (Bijal High RN) Patient Care Comments: Pt called out feeling pressure. (Bijal High RN) Datetime: 11/06/2016 00:30 Stage of : Labor (Marcia Ho, TEENA) Monitor Mode: External; Palpation (Marcia Ho, RN) Frequency (min): 3-4 (Marcia Ho, RN) Quality: Moderate (Marcia Ho, RN) Duration (sec): 60-120 (Marcia Ho, RN) Pattern: Normal: <= 5 Contractions in 10 Minutes (Marcia Ho, RN) Resting Tone (Palpate): Relaxed (Marcia Ho, RN) Monitor Mode: External US (Marcia Ho, RN) FHR Baseline Rate : 120 (Marcia Ho, RN) Variability: Moderate 6-25 bpm (Marcia Ho, RN) Accelerations: None (Marcia Ho, RN) Decelerations: Early (Marcia Ho, RN) Communication: RN at Bedside; RN Reviewed Strip (Marcia Ho, RN) Datetime: 11/06/2016 00:22 Monitor Interventions for FHR: Ultrasound Adjusted (Marcia Ho RN) Comments: Rn at bedside. FHR audible, but not tracing appropriately. US adjusted. (Marcia Ho RN) Datetime: 11/06/2016 00:15 Stage of : Antepartum (Marcia Ho RN) Respirations: 18 (Marcia Ho RN) Monitor Mode: External (Marcia Ho, TEENA) Frequency (min): 2-4 (Marcia Ho RN) Quality: Mild/Moderate (Marcia Ho RN) Duration (sec): 90-130 (Marcia Ho RN) Pattern: Normal: <= 5 Contractions in 10 Minutes (Marcia Ho RN) Resting Tone (Palpate): Relaxed (Marcia Ho RN) Monitor Mode: External US (Marcia Ho RN) FHR Baseline Rate : 120 (Marcia Ho RN) Variability: Moderate 6-25 bpm (Marcia Ho, RN) Accelerations: 15X15 (Marcia Ho, RN) Decelerations: Early (Marcia Ho RN) Pain Scale: 0 (Marcia Ho RN) Pain Presence: None/Denies (Marcia Ho RN) Pain Type: N/A (Marcia Ho RN) Pain Coping: Talking Through Contractions (Marcia Ho RN) Communication: RN at Bedside; RN Reviewed Strip (Marcia Ho RN) LaborFlag: Antepartum (QS system process) Datetime: 11/06/2016 00:00 Stage of : Labor (Marcia Ho, RN) Monitor Mode: External; Palpation (Marcia Ho, RN) Frequency (min): 3-5 (Marcia Ho, RN) Quality: Mild/Moderate (Marcia Ho, RN) Duration (sec): 60-110 (Marcia Ho, RN) Pattern: Normal: <= 5 Contractions in 10 Minutes (Marcia Ho, RN) Resting Tone (Palpate): Relaxed (Marcia Ho, RN) Monitor Mode: External US (Marcia Ho, RN) Monitor Interventions for FHR: Ultrasound Adjusted (Marcia Ho, RN) FHR Baseline Rate : 120 (Marcia Ho, RN) Variability: Moderate 6-25 bpm (Marcia Ho, RN) Accelerations: 15X15 (Marcia Ho, RN) Comments: Rn at bedside repositioning patient and adjusting FHR monitor (Marcia Ho, RN) Communication: RN at Bedside; RN Reviewed Strip (Marcia Ho, RN) Datetime: 11/05/2016 23:57 Patient Position/Activity: Tailors (Bijal Anila, RN) Datetime: 11/05/2016 23:54 Dilatation (cm): 6.0 (Bijal Anila, RN) Effacement (%): 90 (Bijal Anila, RN) Station: -1 (Bijal Anila, RN) Exam by: B Ho, RN (Bijal Anila, RN) Vaginal Bleeding: Moderate (Bijal Anila, RN) Datetime: 11/05/2016 23:53 IV/Blood Work: New IV Bag Hung (Bijal Anila, RN) Datetime: 11/05/2016 23:49 NBP Sys/Estefania/Mean (mmHg): 111 (QS system process) : 56 (QS system process) : 79 (QS system process) Pulse: 66 (QS system process) LaborFlag: Labor (QS system process) Datetime: 11/05/2016 23:46 Patient Position/Activity: Peanut Ball (Bijal High RN) Patient Care Comments: Pt turned to L lateral (Bijal High RN) Datetime: 11/05/2016 23:45 Stage of : Labor (Marcia Ho, RN) Monitor Mode: External (Marcia Ho, RN) Frequency (min): 3-5 (Marcia Ho, RN) Quality: Mild/Moderate (Marcia Ho, RN) Pattern: Normal: <= 5 Contractions in 10 Minutes (Marcia Ho, RN) Resting Tone (Palpate): Relaxed (Marcia Ho, RN) Monitor Mode: External US (Marcia Ho, RN) Monitor Interventions for FHR: Ultrasound Adjusted (Marcia Ho RN) Variability: Moderate 6-25 bpm (Marcia Ho RN) Comments: ITD due to broken tracing. Rn at bedside adjusting FHR monitor (Marcia Ho RN) Communication: RN at Bedside; RN Reviewed Strip (Marcia Ho RN) Datetime: 11/05/2016 23:39 NBP Sys/Estefania/Mean (mmHg): 114 (QS system process) : 63 (QS system process) : 81 (QS system process) Pulse: 86 (QS system process) LaborFlag: Labor (QS system process) Datetime: 11/05/2016 23:30 Stage of : Labor (Macria Ho RN) Monitor Mode: External (Marcia Ho RN) Frequency (min): 3-5 (Marcia Ho RN) Quality: Mild/Moderate (Marcia Ho RN) Duration (sec): 90-150 (Marcia Ho RN) Pattern: Normal: <= 5 Contractions in 10 Minutes (Marcia Ho, RN) Resting Tone (Palpate): Relaxed (Marcia Ho, RN) Monitor Mode: External US (Marcia Ho, RN) Monitor Interventions for FHR: Ultrasound Adjusted (Marcia Ho, RN) FHR Baseline Rate : 145 (Marcia Ho, RN) Variability: Moderate 6-25 bpm (Marcia Ho, RN) Accelerations: 15X15 (Marcia Ho, RN) Decelerations: Early (Marcia Ho, RN) Communication: RN at Bedside; RN Reviewed Strip (Marcia Ho, RN) Datetime: 11/05/2016 23:29 NBP Sys/Estefania/Mean (mmHg): 114 (QS system process) : 57 (QS system process) : 79 (QS system process) Pulse: 78 (QS system process) LaborFlag: Labor (QS system process) Datetime: 11/05/2016 23:20 NBP Sys/Estefania/Mean (mmHg): 117 (QS system process) : 73 (QS system process) : 86 (QS system process) Pulse: 76 (QS system process) LaborFlag: Labor (QS system process) Datetime: 11/05/2016 23:15 Stage of : Labor (Marcia Ho, RN) Monitor Mode: External (Marcia Ho, RN) Frequency (min): 4-5 (Marcia Ho, RN) Quality: Mild/Moderate (Marcia Ho, RN) Duration (sec): 60-120 (Marcia Ho, RN) Pattern: Normal: <= 5 Contractions in 10 Minutes (Marcia Ho, RN) Resting Tone (Palpate): Relaxed (Marcia Ho, RN) Monitor Mode: External US (Marcia Ho, RN) FHR Baseline Rate : 145 (Marcia Ho, RN) Variability: Moderate 6-25 bpm (Marcia Ho, RN) Accelerations: 15X15 (Marcia Ho, RN) Decelerations: None (Marcia Ho, RN) Communication: RN Reviewed Strip (Marcia Ho, RN) Datetime: 11/05/2016 23:09 NBP Sys/Estefania/Mean (mmHg): 107 (QS system process) : 61 (QS system process) : 77 (QS system process) Pulse: 71 (QS system process) LaborFlag: Labor (QS system process) Datetime: 11/05/2016 23:00 Stage of : Labor (Marcia Ho RN) NBP Sys/Estefania/Mean (mmHg): 101 (QS system process) : 60 (QS system process) : 75 (QS system process) Pulse: 74 (QS system process) Respirations: 18 (Marcia Ho RN) Monitor Mode: External (Marcia Ho, TEENA) Frequency (min): 5-6.5 (Marcia Ho RN) Quality: Mild/Moderate (Marcia Ho RN) Duration (sec): 120-180 (Marcia Ho RN) Pattern: Normal: <= 5 Contractions in 10 Minutes (Marcia Ho RN) Resting Tone (Palpate): Relaxed (Marcia Ho RN) Monitor Mode: External US (Marcia Ho RN) Monitor Interventions for FHR: Ultrasound Adjusted (Marcia Ho RN) FHR Baseline Rate : 145 (Marcia Ho, TEENA) Variability: Moderate 6-25 bpm (Marcia Ho RN) Accelerations: None (Marcia Ho RN) Decelerations: Variable (Marcia Ho RN) Pain Scale: 0 (Marcia Ho RN) Pain Presence: None/Denies (Marcia Ho RN) Pain Type: N/A (Marcia Ho RN) Pain Coping: Talking Through Contractions (Marcia Ho RN) Communication: RN at Bedside; RN Reviewed Strip (Marcia Ho RN) LaborFlag: Labor (QS system process) Datetime: 11/05/2016 22:49 NBP Sys/Estefania/Mean (mmHg): 111 (QS system process) : 64 (QS system process) : 81 (QS system process) Pulse: 85 (QS system process) LaborFlag: Labor (QS system process) Datetime: 11/05/2016 22:45 Stage of : Labor (Marcia Ho RN) Monitor Mode: External (Marcia Ho RN) Frequency (min): 3-4 (Marcia Ho RN) Quality: Mild/Moderate (Marcia Ho RN) Duration (sec): 60-90 (Marcia Ho RN) Pattern: Normal: <= 5 Contractions in 10 Minutes (Marcia Ho RN) Resting Tone (Palpate): Relaxed (Marcia Ho RN) Monitor Mode: External US (Marcia Ho RN) Monitor Interventions for FHR: Ultrasound Adjusted (Marcia Ho RN) FHR Baseline Rate : 140 (Marcia Ho, RN) Variability: Moderate 6-25 bpm (Marcia Ho, RN) Accelerations: 10X10 (Marcia Ho RN) Comments: Rn at bedside adjusting FHR monitor. FHR audible although it is not always tracing, no decels heard (Marcia Ho RN) Communication: RN at Bedside; RN Reviewed Strip (Marcia Ho RN) Datetime: 11/05/2016 22:40 NBP Sys/Estefania/Mean (mmHg): 140 (QS system process) : 60 (QS system process) : 87 (QS system process) Pulse: 86 (QS system process) LaborFlag: Labor (QS system process) Datetime: 11/05/2016 22:39 Dilatation (cm): 6.5 (Marcia Ho, RN) Effacement (%): 75 (Marcia Ho, RN) Station: -2 (Marcia Ho, TEENA) Exam by: Dr Durand (Marcia Ho RN) Membrane Status: Ruptured (Marcia Ho, RN) Membranes Rupture Method: Artificial (Marcia Ho, RN) Amniotic Fluid Color: Clear (Marcia Ho, RN) Amniotic Fluid Amount: Small (Marcia Ho, RN) Vaginal Bleeding: None (Marcia Ho, RN) Cervix, Consistency: Moderate (Marcia Ho, RN) Cervix, Position: Midposition (Marcia Ho, RN) Datetime: 11/05/2016 22:31 NBP Sys/Estefania/Mean (mmHg): 114 (QS system process) : 56 (QS system process) : 78 (QS system process) Pulse: 80 (QS system process) LaborFlag: Labor (QS system process) Datetime: 11/05/2016 22:30 Stage of : Labor (Marcia Ho, RN) Monitor Mode: External; Palpation (Marcia Ho, RN) Frequency (min): 5-8 (Marcia Ho, RN) Quality: Mild/Moderate (Marcia Ho, RN) Duration (sec): 100-120 (Marcia Ho, RN) Pattern: Normal: <= 5 Contractions in 10 Minutes (Marcia Ho, RN) Resting Tone (Palpate): Relaxed (Marcia Ho, RN) Monitor Mode: External US (Marcia Ho, RN) Monitor Interventions for FHR: Ultrasound Adjusted (Marcia Ho, RN) FHR Baseline Rate : 150 (Marcia Ho, RN) Variability: Moderate 6-25 bpm (Marcia Ho, RN) Accelerations: 10X10 (Marcia Ho, RN) Decelerations: Variable (Marcia Ho, RN) Communication: RN at Bedside; RN Reviewed Strip (Marcia Oh, RN) Datetime: 11/05/2016 22:19 NBP Sys/Estefania/Mean (mmHg): 110 (QS system process) : 57 (QS system process) : 77 (QS system process) Pulse: 83 (QS system process) LaborFlag: Labor (QS system process) Datetime: 11/05/2016 22:17 NBP Sys/Estefania/Mean (mmHg): 114 (QS system process) : 59 (QS system process) : 82 (QS system process) Pulse: 81 (QS system process) LaborFlag: Labor (QS system process) Datetime: 11/05/2016 22:16 NBP Sys/Estefania/Mean (mmHg): 114 (QS system process) : 57 (QS system process) : 78 (QS system process) Pulse: 78 (QS system process) LaborFlag: Labor (QS system process) Datetime: 11/05/2016 22:15 NBP Sys/Estefania/Mean (mmHg): 112 (QS system process) : 57 (QS system process) : 82 (QS system process) Pulse: 95 (QS system process) LaborFlag: Labor (QS system process) Datetime: 11/05/2016 22:13 NBP Sys/Estefania/Mean (mmHg): 115 (QS system process) : 58 (QS system process) : 77 (QS system process) Pulse: 97 (QS system process) LaborFlag: Labor (QS system process) Datetime: 11/05/2016 22:12 NBP Sys/Estefania/Mean (mmHg): 114 (QS system process) NBP Sys/Estefania/Mean (mmHg): 127 (QS system process) : 56 (QS system process) : 58 (QS system process) : 77 (QS system process) : 83 (QS system process) Pulse: 89 (QS system process) Pulse: 105 (QS system process) SpO2 (%): 100 (QS system process) LaborFlag: Labor (QS system process) Datetime: 11/05/2016 22:10 I/O Interventions: Kenney Cath Inserted (Marcia Ho, RN) Datetime: 11/05/2016 22:09 NBP Sys/Estefania/Mean (mmHg): 139 (QS system process) : 60 (QS system process) : 94 (QS system process) Pulse: 104 (QS system process) LaborFlag: Labor (QS system process) Datetime: 11/05/2016 22:08 NBP Sys/Estefania/Mean (mmHg): 136 (QS system process) : 65 (QS system process) : 94 (QS system process) Pulse: 91 (QS system process) LaborFlag: Labor (QS system process) Datetime: 11/05/2016 22:07 NBP Sys/Estefania/Mean (mmHg): 112 (QS system process) : 56 (QS system process) : 80 (QS system process) Pulse: 91 (QS system process) Pulse: 97 (QS system process) SpO2 (%): 99 (QS system process) LaborFlag: Labor (QS system process) Datetime: 11/05/2016 22:06 NBP Sys/Estefania/Mean (mmHg): 129 (QS system process) : 52 (QS system process) : 82 (QS system process) Pulse: 86 (QS system process) Epidural Procedure: Cath Placed (Marcia Ho, RN) LaborFlag: Labor (QS system process) Datetime: 11/05/2016 22:05 NBP Sys/Estefania/Mean (mmHg): 118 (QS system process) : 61 (QS system process) : 84 (QS system process) Pulse: 93 (QS system process) LaborFlag: Labor (QS system process) Datetime: 11/05/2016 22:04 NBP Sys/Estefania/Mean (mmHg): 132 (QS system process) : 60 (QS system process) : 86 (QS system process) Pulse: 95 (QS system process) LaborFlag: Labor (QS system process) Datetime: 11/05/2016 22:02 NBP Sys/Estefania/Mean (mmHg): 138 (QS system process) : 61 (QS system process) : 88 (QS system process) Pulse: 88 (QS system process) Pulse: 87 (QS system process) SpO2 (%): 98 (QS system process) LaborFlag: Labor (QS system process) Datetime: 11/05/2016 22:01 NBP Sys/Estefania/Mean (mmHg): 130 (QS system process) : 59 (QS system process) : 87 (QS system process) Pulse: 79 (QS system process) LaborFlag: Labor (QS system process) Datetime: 11/05/2016 22:00 NBP Sys/Estefania/Mean (mmHg): 137 (QS system process) : 65 (QS system process) : 93 (QS system process) Pulse: 99 (QS system process) Monitor Mode: External (Marcia Ho, RN) Frequency (min): UTD (Marcia Ho, RN) Contraction Comments: UTD due to patient postion changes for epidural placement (Marcia Ho, RN) Monitor Mode: External US (Marcia Ho, RN) FHR Baseline Rate : 150 (Marcia Ho, RN) Variability: Moderate 6-25 bpm (Marcia Ho, RN) Accelerations: 15X15 (Marcia Ho, RN) Decelerations: Variable (Marcia Ho, RN) Epidural Procedure: Cath Placed; Test Dose (Marcia Ho, RN) LaborFlag: Labor (QS system process) Datetime: 11/05/2016 21:57 Pulse: 87 (QS system process) SpO2 (%): 100 (QS system process) LaborFlag: Labor (QS system process) Datetime: 11/05/2016 21:54 Communication: Provider at Bedside (Marcia Ho RN) Communication Comments: Dr Gregg at bedside (Marcia Ho RN) Datetime: 11/05/2016 21:52 Pulse: 80 (QS system process) SpO2 (%): 100 (QS system process) IV/Blood Work: New IV Bag Hung (Marcai Ho RN) Procedure Type: EPIDURAL (Marcia Ho RN) Procedure Verify: Correct Patient Identity; Correct Side and Site are Marked; Accurate Procedure Consent Form; Agreement on Procedure to be Done; Correct Patient Position; Relevant Images and Results are Properly Labeled and Displayed; Addressed Need to Administer Antibiotics or Fluids for Irrigation; Safety Precautions Based on Patient History or Medication Use (Marcia Ho RN) Anesthesia Plans: Epidural (Marcia Ho RN) Epidural Positioning: Sitting (Marcia Ho RN) LaborFlag: Labor (QS system process) Datetime: 11/05/2016 21:43 Dilatation (cm): 6.5 (Marcia Ho RN) Effacement (%): 75 (Marcia Ho RN) Station: -2 (Marcia Ho RN) Exam by: Dr Durand (Marcia Ho RN) Vaginal Bleeding: None (Marcia Ho RN) Cervix, Consistency: Moderate (Marcia Ho RN) Cervix, Position: Midposition (Marcia Ho RN) Procedure Type: EPIDURAL (Marcia Ho RN) Procedure Verify: Correct Patient Identity; Correct Side and Site are Marked; Agreement on Procedure to be Done; Relevant Images and Results are Properly Labeled and Displayed; Addressed Need to Administer Antibiotics or Fluids for Irrigation; Safety Precautions Based on Patient History or Medication Use (Marcia Ho RN) Datetime: 11/05/2016 21:30 Stage of : Labor (Marcia Ho RN) Respirations: 18 (Marcia Ho RN) Temperature (F): 98.7 (Marcia Ho RN) Temperature (C): 37.1 (QS system process) Monitor Mode: External; Palpation (Marcia Ho RN) Frequency (min): 6-8 (Marcia Ho RN) Quality: Mild/Moderate (Marcia Ho RN) Duration (sec): 70-130 (Marcia Ho RN) Pattern: Normal: <= 5 Contractions in 10 Minutes (Marcia Ho RN) Resting Tone (Palpate): Relaxed (Marcia Ho RN) Monitor Mode: External US (Marcia Ho RN) FHR Baseline Rate : 120 (Marcia Ho RN) Variability: Moderate 6-25 bpm (Marcia Ho RN) Accelerations: 15X15 (Marcia Ho RN) Decelerations: None (Marcia Ho RN) Pain Scale: 4 (Marcia Ho RN) Pain Presence: Intermittent (Marcia Ho RN) Pain Type: Contraction (Marcia Ho RN) Pain Location: Abdomen (Marcia Ho RN) Pain Goal: 1 (Marcia Ho RN) Pain Relief Measures: Comfort Measures (Marcia Ho RN) Pain Coping: Requesting Pain Medication or Epidural (Marcia Ho RN) Pain Coping: Talking Through Contractions (Marcia Ho RN) Comfort Measures: Breathing/Relaxation; Family Support (Marcia Ho RN) Procedure Type: EPIDURAL (Marcia Ho RN) Procedure Verify: Correct Patient Identity; Correct Side and Site are Marked; Agreement on Procedure to be Done; Relevant Images and Results are Properly Labeled and Displayed; Addressed Need to Administer Antibiotics or Fluids for Irrigation; Safety Precautions Based on Patient History or Medication Use (Marcia Ho RN) Communication: RN at Bedside; RN Reviewed Strip (Marcia Ho RN) LaborFlag: Labor (QS system process) Datetime: 11/05/2016 21:00 Stage of : Labor (Marcia Ho, RN) Monitor Mode: External; Palpation (Marcia Ho, RN) Frequency (min): 3-5 (Marcia Ho, RN) Quality: Mild/Moderate (Marcia Ho, RN) Duration (sec): 60-100 (Marcia Ho, RN) Pattern: Normal: <= 5 Contractions in 10 Minutes (Marcia Ho, RN) Resting Tone (Palpate): Relaxed (Marcia Ho, RN) Monitor Mode: External US (Marcia Ho, RN) Monitor Interventions for FHR: Ultrasound Adjusted (Marcia Ho, RN) FHR Baseline Rate : 135 (Marcia Ho, RN) Variability: Moderate 6-25 bpm (Marcia Ho, RN) Accelerations: 15X15 (Marcia Ho, RN) Communication: RN at Bedside; RN Reviewed Strip (Marcia Ho, RN) Datetime: 11/05/2016 20:56 Monitor Interventions for FHR: Ultrasound Adjusted (Marcia Ho, RN) Datetime: 11/05/2016 20:47 NBP Sys/Estefania/Mean (mmHg): 111 (QS system process) : 68 (QS system process) : 83 (QS system process) Pulse: 85 (QS system process) LaborFlag: Labor (QS system process) Datetime: 11/05/2016 20:46 I/O Interventions: Up to BR (Marcia Ho, RN) Datetime: 11/05/2016 20:40 IV/Blood Work: IV Started; IV Bolus Started; Labs Drawn with IV Start (Marcia Ho, RN) Patient Care Comments: 20 gauge placed in R forearm (Marcia Ho, RN) Datetime: 11/05/2016 20:38 Monitor Interventions for FHR: Ultrasound Adjusted (Marcia Ho, RN) Datetime: 11/05/2016 20:35 Procedures: Consents Signed (Marcia Ho, RN) Datetime: 11/05/2016 20:30 Stage of : Labor (Marcia Ho, RN) Stage of : Antepartum (Marcia Ho, RN) Monitor Mode: External; Palpation (Marcia Ho, RN) Frequency (min): x1 (Marcia Ho, RN) Quality: Mild/Moderate (Marcia Ho, RN) Duration (sec): 80 (Marcia Ho, RN) Pattern: Normal: <= 5 Contractions in 10 Minutes (Marcia Ho, RN) Resting Tone (Palpate): Relaxed (Marcia Ho, RN) Monitor Mode: External US (Marcia Ho, RN) Monitor Interventions for FHR: Ultrasound Adjusted (Marcia Ho, RN) FHR Baseline Rate : 135 (Marcia Ho, RN) Variability: Moderate 6-25 bpm (Marcia Ho, RN) Accelerations: 15X15 (Marcia Ho, RN) Decelerations: None (Marcia Ho, RN) Communication: RN at Bedside; RN Reviewed Strip (Marcia Ho, RN) Datetime: 11/05/2016 20:09 Dilatation (cm): 5.5 (Marcia Ho, RN) Effacement (%): 75 (Marcia Ho, RN) Station: -1 (Marcia Ho, RN) Exam by: Dr Durand (Marcia Ho, RN) Datetime: 11/05/2016 20:01 Level of Consciousness: Fully Conscious (Marcia Ho, RN) DTR's/Clonus: DTRs 1+; No Clonus (Marcia Ho, RN) Headache: Denies (Marcia Ho, RN) Breath Sounds, Left: Clear and Equal (Marcia Ho, RN) Breath Sounds, Right: Clear and Equal (Marcia Ho, RN) Nausea/Vomiting: Denies (Marcia Ho, RN) RUQ Epigastric Pain: Denies (Marcia Ho, RN) Datetime: 11/05/2016 19:13 Communication Comments: Report to Yvette Ho RN (Emelia Henley RN)
[2016-11-06] MEDS: SENNOSIDES/DOCUSATE 8.6-50 MG 1 EACH TABLET PO SCH (09:49)
[2016-11-06] MEDS: PRENATAL VITAMIN W-O CA NO5/FE FUMARATE/FA CAPSULE PO SCH (09:49)
[2016-11-06] MEDS: DOCUSATE SODIUM 100 MG CAPSULE PO SCH ×2 (09:50→17:18)
[2016-11-06] MEDS: FERROUS SULFATE 325 MG TABLET PO SCH ×2 (09:50→17:18)
--- NOTE | 2016-11-06 11:13 | PDOC PROGRESS REPORT ---
Subjective-OB Subjective: Post Delivery Day: 36 year old. Denies any needs at this time Physical Exam (OB) Vital Signs: Temp Pulse Resp BP Pulse Ox 98.1 F 57 L 17 115/52 L 100 11/06/16 07:37 11/06/16 07:37 11/06/16 07:37 11/06/16 07:37 11/06/16 07:37 Intake & Output 11/05/16 11/06/16 11/07/16 06:59 06:59 06:59 Weight 82.9 kg - Lochia Lochia Amount: Scant < 10 ml Lochia Color: Rubra/Red - Abdomen Description: Tender, Soft Hernia Present: No Bowel Sounds: Normoactive Flatus Presence: Present Stool: No Fundal Description: Firm, Midline Fundal Height: u/u - u/2 Objective-Diagnostic Laboratory: 11/05/16 20:45 11/05/16 11/05/16 11/05/16 18:15 20:45 20:45 WBC 11.0 H RBC 3.30 L Hgb 10.0 L Hct 29.7 L MCV 90 MCH 30.3 MCHC 33.7 RDW 14.1 H Plt Count 149 L Seg Neutrophils % 72.3 Lymphocytes % 16.2 Monocytes % 9.2 Eosinophils % 1.7 Basophils % 0.6 Absolute Neutrophils 8.0 Absolute Lymphocytes 1.8 Absolute Monocytes 1.0 Absolute Eosinophils 0.2 Absolute Basophils 0.1 Urine Color YELLOW Urine Appearance SLIGHTLY-CLOUDY Urine pH 7.0 Ur Specific [place] 1.017 Urine Protein NEGATIVE Urine Glucose (UA) NEGATIVE Urine Ketones TRACE H Urine Blood SMALL H Urine Nitrite NEGATIVE Ur Leukocyte Esterase SMALL H Blood Type O POSITIVE Antibody Screen NEGATIVE
--- NOTE | 2016-11-06 18:01 | L&D General Admission ---
General Admit Datetime Report Generated by CPN: 11/06/2016 18:00 INFORMATION Patient Age: 35 (08/16/2016 11:30:QS system process) EDC: 11/16/2016 00:00 (08/16/2016 11:39:Thania Saucedo RN) : 6 (08/16/2016 11:39:Emelia Henley RN) Para: 4 (08/16/2016 11:39:Thania Saucedo RN) Term: 2 (08/16/2016 11:39:Thania Saucedo RN) : 2 (08/16/2016 11:39:Thania Saucedo RN) Spontaneous Abortions: 0 (08/16/2016 11:39:Thania Saucedo RN) Induced Abortions: 0 (08/16/2016 11:39:Thania Saucedo RN) Livin (08/16/2016 11:39:Thania Saucedo RN) Cesareans: 0 (08/16/2016 11:39:Thania Saucedo RN) VBACs: 0 (08/16/2016 11:39:Thania Saucedo RN) Ectopic: 0 (08/16/2016 11:39:Thania Saucedo RN) Multiple Births: 0 (08/16/2016 11:39:Thania Saucedo RN) Baby, Number in Womb: 1 (08/16/2016 11:39:Thania Saucedo RN) CARE [facility] Compliance [facility] (08/16/2016 11:39:Melissa Bach RN) Month of 1st Visit: April (08/16/2016 11:39:Emeila Hneley RN) Adequate Care: Yes (08/16/2016 11:39:Emelia Henley RN) Height (in): 64 (11/06/2016 10:33:QS system process) ALLERGIES Medication Allergy: No (08/16/2016 11:39:Emelia Henley RN) Medication Allergies: No Known Allergies (11/05/2016) (11/05/2016 23:04:QS system process) Latex Allergy: No Latex Allergies (08/16/2016 11:39:Emelia Henley RN) Food Allergies: none (08/16/2016 11:39:Marcia Ho RN) Environmental Allergies: none (08/16/2016 11:39:Marcia Ho RN) COMMUNICATION Primary Language: Taiwanese (08/16/2016 11:39:Thania Saucedo RN) Medical Tx Preferred Language: Taiwanese (08/16/2016 11:39:Thania Saucedo RN) Communication Barrier(s): None (08/16/2016 11:39:Cathy Lewis RN) DEMOGRAPHICS Address: [address] [place] [id number] (11/05/2016 20:13:QS system process) Zipcode: [id number] (08/16/2016 11:30:QS system process) Home (08/16/2016 11:30:QS system process) Work (08/16/2016 11:30:QS system process) N: [phone] (08/16/2016 11:30:QS system process) Next of Kin Name: HIGINIO SAMUEL (08/16/2016 11:30:QS system process) Next of Kin (08/16/2016 11:30:QS system process) Next of Kin Relationship: SPO (08/16/2016 11:30:QS system process) Date of : 1980 (08/16/2016 11:30:QS system process) Marital Status: (08/16/2016 11:30:QS system process) Sex: Female (08/16/2016 11:30:QS system process) Race: (08/16/2016 11:30:QS system process) Ethnicity: Non- or (08/16/2016 11:30:QS system process) Hinduism: None (08/16/2016 11:30:QS system process) DRUG AND ALCOHOL USE Alcohol: No (08/16/2016 11:39:Emelia Henley RN) Cigarettes: Never Smoker. [id number] (08/16/2016 11:39:Emelia Henley RN) Marijuana: No (08/16/2016 11:39:Emelia Henley RN) Cocaine: No (08/16/2016 11:39:Emelia Henley RN) Other Illicit Drugs: No (08/16/2016 11:39:Emelia Henley RN) VACCINE HISTORY Influenza Vaccine: No (08/16/2016 11:39:Emelia Henley RN) Pneumococcal Vaccine: No (08/16/2016 11:39:Emelia Henley RN) Tetanus Vaccine: Yes (08/16/2016 11:39:Emelia Henley RN) Tdap Vaccine: Yes (08/16/2016 11:39:Emelia Henley RN) Hepatitis B Vaccine: No (08/16/2016 11:39:Emelia Henley RN) Manager Placement: [facility] (08/16/2016 11:39:Emelia Henley RN) Feeding Preference: Both (08/16/2016 11:39:Emelia Henley RN) Benefit of Breast Feed Discussed: Yes (08/16/2016 11:39:Emelia Henley RN) Circumcision: N/A (08/16/2016 11:39:Emelia Henley RN) Classes Attended: No (08/16/2016 11:39:Emelia Henley RN) Tubal Ligation: No (08/16/2016 11:39:Emelia Henley RN) Tubal Authorization Signed: N/A (08/16/2016 11:39:Emelia Henley RN) Consent: N/A (08/16/2016 11:39:Emelia Henley RN) Consent Signed: N/A (08/16/2016 11:39:Emelia Henley RN) Pain Management Plans: Epidural (08/16/2016 11:39:Emelia Henley, RN) Plans for Labor and Delivery: None (08/16/2016 11:39:Emelia Henley RN) Support Person: Higinio [place] (08/16/2016 11:39:Emelia Henley RN) Support Person Relationship: (08/16/2016 11:39:Emelia Henley RN) Cultural/Spritual Practice: No (08/16/2016 11:39:Emelia Henley RN) Spir/Cult Dietary Needs: No (08/16/2016 11:39:Emelia Henley RN) LIVING SITUATION/DISCHARGE PLAN Living Arrangements: House (08/16/2016 11:39:Emelia Henley RN) Adequate Access to:: Electric; Heat; Refrigeration; Plumbing/Running water; Phone; Transportation (08/16/2016 11:39:Emelia Henley RN) WIC Program: Yes (08/16/2016 11:39:Emelia Henley RN) Discharge [employer] Person: [employer] (08/16/2016 11:39:Emelia Henley RN) Person to Help after Discharge: [employer] (08/16/2016 11:39:Emelia Henley RN) Currently Using Commun Resources: No (08/16/2016 11:39:Emelia Henley RN) Outside Agency/Tightener: No (08/16/2016 11:39:Emelia Henley RN) Car Seat for Discharge: Yes (08/16/2016 11:39:Emelia Henley RN) Adoption Requested: No (08/16/2016 11:39:Emelia Henley RN) Pt Contact w/ Post : N/A (08/16/2016 11:39:Emelia Henley RN) LABS Blood Type: O Positive (08/16/2016 11:39:Bijal High RN) Antibody Screen: negative (08/16/2016 11:39:Bijal High RN) Hemoglobin: 10.0 L (11/05/2016 20:45:QS system process) Hematocrit: 29.7 L (11/05/2016 20:45:QS system process) MCV: 90 (11/05/2016 20:45:QS system process) Group Beta Strep: Negative (08/16/2016 12:07:Marcia Ho RN) Gonorrhea: Negative (08/16/2016 11:39:Emelia Henley RN) Chlamydia: Negative (08/16/2016 11:39:Emelia Henley RN) RPR/VDRL: Nonreactive (08/16/2016 11:39:Emelia Henley RN) HIV Exposure Test: Negative (08/16/2016 11:39:Emelia Henley RN) HIV Results: non-reacttive (08/16/2016 11:39:Bijal High RN) Hepatitis B: Negative (08/16/2016 11:39:Bijal High RN) Rubella: Immune (08/16/2016 11:39:Bijal High RN) Rubella Titer: 165.50 (08/16/2016 11:39:Bijal High RN) Varicella: Non Susceptible (08/16/2016 11:39:Bijal High RN) OB/PREVIOUS HISTORY Previous Procedures: Ultrasound; NST (08/16/2016 11:39:Melissa Bach RN) Current Procedures: Ultrasound; NST (08/16/2016 11:39:Melissa Bach RN) History of Previous : No (08/16/2016 11:39:Melissa Bach RN) History of Gestational Diabetes: No (08/16/2016 11:39:Melissa Bach RN) History of PIH: No (08/16/2016 11:39:Melissa Bach RN) History of Incompetent Cervix: No (08/16/2016 11:39:Melissa Bach RN) History of Placenta Previa/Abrup: No (08/16/2016 11:39:Melissa Bach RN) History of Macrosomia: No (08/16/2016 11:39:Melissa Bach RN) History of IUGR: No (08/16/2016 11:39:Melissa Bach RN) History of Hemorrhage: No (08/16/2016 11:39:Melissa Bach RN) History of Loss/Stillborn: No (08/16/2016 11:39:Melissa Bach RN) History of : No (08/16/2016 11:39:Melissa Bach RN) History of D (Rh) Sensitization: No (08/16/2016 11:39:Melissa Bach RN) History Recurrent Loss/Stillborn: No (08/16/2016 11:39:Melissa Bach RN) History Depression/PP Depression: No (08/16/2016 11:39:Melissa Bach RN) History of Uterine Anomaly/NARA: No (08/16/2016 11:39:Melissa Bach RN) History of Infertility: No (08/16/2016 11:39:Melissa Bach RN) History of ART Treatment: No (08/16/2016 11:39:Melissa Bach RN) History of NARA: No (08/16/2016 11:39:Melissa Bach RN) Comments Obstetrical History: G1- 2004 male 40 weeks 7lb0oz G2- 2007 male 34 weeks 5lb4oz PROM@34 weeks G3- 2009 male 36 weeks 5lb5oz PROM@36 weeks G4- 2013 SAB G5- 2014 male 38 weeks 6lb8oz G6- current currently taking p17 (08/16/2016 11:39:Melissa Bach RN) MEDICAL HISTORY Med Hx Diabetes: No (08/16/2016 11:39:Melissa Bach RN) Med Hx Hypertension: No (08/16/2016 11:39:Melissa Bach RN) Med Hx Heart Disease: No (08/16/2016 11:39:Melissa Bach RN) Med Hx Autoimmune Disorder: No (08/16/2016 11:39:Melissa Bach RN) Med Hx Kidney Disease/UTI: Yes (08/16/2016 11:39:Emelia Henley RN) Med Hx Neurologic/Epilepsy: No (08/16/2016 11:39:Melissa Bach RN) Med Hx Psychiatric Disorders: No (08/16/2016 11:39:Melissa Bach RN) Med Hx Hepatitis/Liver Disease: No (08/16/2016 11:39:Melissa Bach RN) Med Hx Varicosities/Phlebitis: No (08/16/2016 11:39:Melissa Bach RN) Med Hx Thyroid Dysfunction: No (08/16/2016 11:39:Melissa Bach RN) Med Hx Trauma/Violence: No (08/16/2016 11:39:Melissa Bach RN) Med Hx Blood Transfusion: No (08/16/2016 11:39:Melissa Bach RN) Med Hx Pulmonary (Asthma,TB): No (08/16/2016 11:39:Melissa Bach RN) Med Hx Breast: No (08/16/2016 11:39:Melissa Bach RN) Med Hx FOURTH MATE Surgery: No (08/16/2016 11:39:Melissa Bach RN) Med Hx Hospitalization/Surgery: Yes (08/16/2016 11:39:Cathy Lewis RN) Med Hx Anesthetic Complications: No (08/16/2016 11:39:Melissa Bach RN) Med Hx Abnormal Pap Smear: No (08/16/2016 11:39:Melissa Bach RN) Other Medical Diseases: No (08/16/2016 11:39:Melissa Bach RN) Med Hx Significant Family Hx: No (08/16/2016 11:39:Melissa Bach RN) Details of Med/Surg Hx: CHILDBIRTH, kidney stones (08/16/2016 11:39:Emelia Henley RN) INFECTIOUS HISTORY Inf Hx Gonorrhea: No (08/16/2016 11:39:Melissa Bach RN) Inf Hx Chlamydia: No (08/16/2016 11:39:Melissa Bach RN) Inf Hx Syphilis: No (08/16/2016 11:39:Melissa Bach RN) Inf Hx HIV/AIDS: No (08/16/2016 11:39:Melissa Bach RN) Inf Hx Human Papilloma Virus: No (08/16/2016 11:39:Melissa Bach RN) 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 (08/16/2016 11:39:Emelia Henley RN) Inf Hx Tuberculosis/Exposure: No (08/16/2016 11:39:Melissa Bach RN) Inf Hx Hepatitis B,C: No (08/16/2016 11:39:Melissa Bach RN) Inf Hx Rash or Viral Illness: No (08/16/2016 11:39:Melissa Bach RN) Details of Infectious Hx: HSV - 2009 (08/16/2016 11:39:Emelia Henley RN) GENETIC HISTORY Gen Hx Age >=35 at MATTHEW: No (08/16/2016 11:39:Melissa Bach RN) Gen Hx Thalassemia: No (08/16/2016 11:39:Melissa Bach RN) Gen Hx Congenital Heart Defect: No (08/16/2016 11:39:Melissa Bach RN) Gen Hx Neural Tube Defect: No (08/16/2016 11:39:Melissa Bach RN) Gen Hx Down's Syndrome: No (08/16/2016 11:39:Melissa Bach RN) Gen Hx Jayme-Sachs: No (08/16/2016 11:39:Melissa Bach RN) Gen Hx [place]: No (08/16/2016 11:39:Melissa Bach RN) Gen Hx Familial Dysautonomia: No (08/16/2016 11:39:Melissa Bach RN) Gen Hx Sickle Cell Disease/Trait: No (08/16/2016 11:39:Melissa Bach RN) Gen Hx Hemophilia/Blood Disorder: No (08/16/2016 11:39:Melissa Bach RN) Gen Hx Muscular Dystrophy: No (08/16/2016 11:39:Melissa Bach RN) Gen Hx Cystic Fibrosis: No (08/16/2016 11:39:Melissa Bach RN) Gen Hx [place] Chorea: No (08/16/2016 11:39:Melissa Bach RN) Gen Hx Mental Retardation/Autism: No (08/16/2016 11:39:Melissa Bach RN) Gen Hx Tested for Fragile X: No (08/16/2016 11:39:Melissa Bach RN) Gen Hx Other Inher/Chromosomal: No (08/16/2016 11:39:Melissa Bach RN) Gen Hx Maternal Metabolic DO: No (08/16/2016 11:39:Melissa Bach RN) Gen Hx Pt Father or FOB Defect: No (08/16/2016 11:39:Melissa Bach RN) Gen Hx Other Genetic History: No (08/16/2016 11:39:Melissa Bach RN) Gen Hx Drugs/Meds since LMP: Yes (08/16/2016 11:39:Emelia Henley RN) Gen Hx Medications: PNV, biotin, valtrex (08/16/2016 11:39:Emelia Henley RN)
--- NOTE | 2016-11-06 18:01 | L&D Current Admission ---
Current Admit Datetime Report Generated by CPN: 11/06/2016 18:00 ADMISSION INFORMATION Current Admit Date/Time: 11/05/2016 20:15 (11/05/2016 18:15:Marcia Ho RN) Reason for Admission: Onset of Labor (11/05/2016 18:15:Marcia Ho RN) Chief Complaint: Contractions (11/05/2016 18:15:Emelia Henley RN) Medications During : Vitamin (11/05/2016 18:15:Marcia Ho RN) Meds During -Oth: valtrex, tamaflu, biotin (11/05/2016 18:15:Marcia Ho RN) EGA per Dates: 38.3 (11/05/2016 18:15:QS system process) Method of Arrival: Wheelchair (11/05/2016 18:15:Marcia Ho RN) Admitted From: Home (11/05/2016 18:15:Marcia Ho RN) Records Available: Yes (11/05/2016 18:15:Marcia Ho RN) General Admission Information: Reviewed (11/05/2016 18:15:Marcia Ho RN) BELONGINGS/ADVANCED DIRECTIVES Comments Regarding Disposition: see belongins consent form (11/05/2016 18:15:Marcia Ho RN) Advance Direct for Healthcare: No, and Wants No Information (11/05/2016 18:15:Marcia Ho RN) Durable Power of Computer Networking Instructor: No (11/05/2016 18:15:Marcia Ho RN) Living Will: No (11/05/2016 18:15:Marcia Ho RN) Organ Donor: No (11/05/2016 18:15:Marcia Ho RN) Pt Rights Information Given: Yes (11/05/2016 18:15:Marcia Ho RN) Pt Understands Pt Rights: Yes (11/05/2016 18:15:Marcia Ho RN) LEARNING ASSESSMENT Knowledge Level: Understands L_D Process; Understands Care Activities; Understands Diagnosis (11/05/2016 18:15:Marcia Ho RN) Barriers to Learning: None (11/05/2016 18:15:Marcia Ho RN) Learning Readiness: Motivated (11/05/2016 18:15:Marcia Ho RN) Learns Best By: 1 to 1 Instruction; Reading; Videos; Demonstration (11/05/2016 18:15:Marcia Ho RN) Learning Needs: Labor and Delivery Process; Pain Management; Symptoms to Report; Treatment Plan; Medication; Diagnosis; Nutrition; Equipment; Infant Care; Community Resources (11/05/2016 18:15:Marcia Ho RN) DOMESTIC VIOLANCE SCREENING Dom Viol Threatened/Hurt: No (11/05/2016 18:15:Marcia Ho RN) Hx of Abuse/Neglect past 2yrs: No (11/05/2016 18:15:Marcia Ho RN) Feel Unsafe Going Home: No (11/05/2016 18:15:Marcia Ho RN) Addt'l Observ Indicating Abuse: No (11/05/2016 18:15:Marcia Ho RN) Reason Unable to Complete Screen: N/A, Screen Completed (11/05/2016 18:15:Marcia Ho RN) Considered Personal Harm/Suicide: No (11/05/2016 18:15:Marcia Ho RN) NUTRITIONAL/FUNCTIONAL SCREENING Problem with Appetite >5 Days: No (11/05/2016 18:15:Marcia Ho RN) Chew/Swallow Difficulties: No (11/05/2016 18:15:Marcia Ho RN) Inappropriate Wt Gain/Loss: No (11/05/2016 18:15:Marcia Ho RN) Presence Skin Breakdown/Ulcer: No (11/05/2016 18:15:Marcia Ho RN) Special Diet: No (11/05/2016 18:15:Marcia Ho RN) Pt Requests Resource Forester Visit: No (11/05/2016 18:15:Marcia Ho RN) Hx of Any of the Following?: N/A (11/05/2016 18:15:Marcia Ho RN) New Diagnosis of: N/A (11/05/2016 18:15:Marcia Ho RN) Requires Assist w/Ambulation: No (11/05/2016 18:15:Marcia Ho RN) Uses Assist Device to Ambulate: No (11/05/2016 18:15:Marcia Ho RN) Pt Requires Help w/ADL's: No (11/05/2016 18:15:Marcia Ho RN)
--- NOTE | 2016-11-06 18:16 | L&D Care Plan ---
LD CARE PLANS Datetime Report Generated by CPN: 11/06/2016 18:15 Datetime: 11/05/2016 20:10 Pain State: Risk For (Kayla Day RN) Related To: Labor and Delivery Process (Kayla Day RN) Goal(s): Patients Pain will be Assessed and Managed; Patient will Verbalize Adequate Relief of Pain or the Ability to [place] with Current Pain (Kayla Day RN) Interventions: Assess Pain Severity on Scale of 0 (None) to 5 (Severe); Assess Type, Location and Intensity of Pain Each Time Client Reports Discomfort and Notify Provider if Unusal Pain Develops; Encourage Proper Breathing and Relaxation Techniques; Offer Alternatives Such as Repositioning, Calm Environment, Massages, Diversional Activities, Ice Pack, Splinting, and Ambulation; Administer Analgesics as Ordered; Assist with Epidural Placement as Appropriate; Evaluate Therapeutic Effectiveness of Medication and Treatments (Kayla Day RN) Outcome: Patient will Report Absence or Relief of Pain Consistent with Established Pain Goal (Kayla Day RN) Status: Ongoing (Kayla Day RN) Outcome: Patient will have a Decrease in Signs and Symptoms of Discomfort (Kayla Day RN) Status: Ongoing (Kayla Day RN) Outcome: Pain will be Controlled During Procedures (Kayla Day RN) Status: Ongoing (Kayla Day RN) Anxiety State: Risk For (Kayla Day RN) Related To: Labor and Delivery Process; Perceived or Actual Threat to ; Medical Interventions (Kayla Day RN) Goal(s): Patient will have Decreased Anxiety and be able to Function at Acceptable Levels (Kayla Day RN) Interventions: Assess Verbal and Nonverbal Behavioral Indicators of Anxiety; Assist Patient to Identify and Verbalize Symptoms of Anxiety; Identify and Demonstrate Techniques to Control Anxiety; Assist Patient with Coping Mechanisms to Manage Anxiety; Provide Theraputic Touch for the Patient; Explain to Patient, Using a Calm Reassuring Approach and Nonmedical Terms, All Activities, Procedures, and Concerns; Instruct Patient and Family about Post Discharge Care, Limitations, Symptoms to Report and Resources Available (Kayla Day RN) Outcome: Patient will Identify, Verbalize and Demonstrate Techniques to Control Anxiety (Kayla Day RN) Status: Ongoing (Kayla Day RN) Outcome: Patient's Posture, Facial Expressions, Gestures and Activity Level will Reflect Decreased Anxiety (Kayla Day RN) Status: Ongoing (Kayla Day RN) Outcome: Patient will Verbalize a Sense of Control and/or Acceptance of the Situation (Kayla Day RN) Status: Ongoing (Kayla Day RN) Outcome: Patient will Identify and Utilize Support Person (Kayla Day RN) Status: Ongoing (Kayla Day RN) Knowledge Deficit State: Risk For (Kayla Day RN) Related To: Labor and Delivery Process; Treatment and Procedures; Impending Alterations in Family Dynamics; Feeding and Care; Community Resources and Available Support Mechanisms (Kayla Day RN) Goal(s): Patient will Accurately Verbalize Understanding of Plan of Care and Treatment; Patient and Family will Accurately Verbalize Understanding of the Disease Process (Kayla Day RN) Interventions: Assess Motivation and Willingness of Patient/Family to Learn; Assess Preferred Learning Mode: One to One Instruction, Reading, Videos, Group Discussion or Demonstration; Assess Barriers to Learning: Pain, Emotional State, Language Barrier, Cognitive Impairment, Visual or Hearing Deficits; Assess Patient and Family Knowledge of Disease Process, Medications and Treatment; Discuss Therapy and/or Treatment Options, Describe Rationale Behind Management, Therapy and Treatment Recommendations; Instruct Patient and Family on Signs and Symptoms to Report; Instruct Patient and Family on Medication Effects and Side Effects; Provide Appropriate and Timely Education Using Multiple Techniques; Provide Patient and Family with Support Group Information and Resources; Give Clear and Thorough Explanations and Demonstrations (Kayla Day RN) Outcome: Patient and Family will Verbalize Understanding of Condition, Treatment and Signs and Symptoms to Report (Kayla Day RN) Status: Ongoing (Kayla Day RN) Outcome: Patient will Identify Perceived Learning Needs and Express Motivation to Learn (Kayla Day RN) Status: Ongoing (Kayla Day RN) Outcome: Patient will Verbalize Understanding of Desired Content, and/or Performs Desired Skill Prior to Discharge (Kayla Day RN) Status: Ongoing (Kayla Day RN) Infection State: Risk For (Kayla Day RN) Related To: Surgical Procedures; Prolonged Labor or Induction; Premature/Prolonged Rupture of Membranes; Invasive Procedures; Altered Tissue Integrity (Kayla Day RN) Goal(s): The Patient will be Free of Infection, Vital Signs Stable and Lab Work within Normal Parameters (Kayla Day RN) Interventions: Instruct and Reinforce Proper Handwashing, Hygiene, and Care Techniques to Patient and Family; Monitor Vital Signs; Monitor Patient for the Following Signs of Infection: Fever, Abdominal Tenderness, Unusual Discharge; Monitor Aminiotic Fluid, Urine and Lochia for Color and Odor; Observe Wounds, Incisions and Invasive Line Sites for Redness, Drainage and Edema; Assess IV Sites per Hospital Policy; Monitor Lab and Test Results and Notify Provider of Abnormal Findings; Assess Nutritional Status and Promote Good Nutrition (Kayla Day RN) Outcome: Patient will Remain Free of Infection (Kayla Day RN) Status: Ongoing (Kayla Day RN) Outcome: Infection will be Recognized Early to Allow for Prompt Treatment (Kayla Day RN) Status: Ongoing (Kayla Day RN) Outcome: Patient will have Vital Signs Within Expected Range (Kayla Day RN) Status: Ongoing (Kayla Day RN)
[2016-11-07] MEDS: IBUPROFEN 800 MG TABLET PO SCH ×2 (05:28→14:11)
--- NOTE | 2016-11-07 06:01 | L&D General Admission ---
General Admit Datetime Report Generated by CPN: 11/07/2016 06:00 INFORMATION Patient Age: 35 (08/16/2016 11:30:QS system process) EDC: 11/16/2016 00:00 (08/16/2016 11:39:Thania Saucedo RN) : 6 (08/16/2016 11:39:Emelia Henley RN) Para: 4 (08/16/2016 11:39:Thania Saucedo RN) Term: 2 (08/16/2016 11:39:Thania Saucedo RN) : 2 (08/16/2016 11:39:Thania Saucedo RN) Spontaneous Abortions: 0 (08/16/2016 11:39:Thania Saucedo RN) Induced Abortions: 0 (08/16/2016 11:39:Thania Saucedo RN) Livin (08/16/2016 11:39:Thania Saucedo RN) Cesareans: 0 (08/16/2016 11:39:Thania Saucedo RN) VBACs: 0 (08/16/2016 11:39:Thania Saucedo RN) Ectopic: 0 (08/16/2016 11:39:Thania Saucedo RN) Multiple Births: 0 (08/16/2016 11:39:Thania Saucedo RN) Baby, Number in Womb: 1 (08/16/2016 11:39:Thania Saucedo RN) CARE Primary Diffusion Furnace Operator: [facility] (08/16/2016 11:39:Melissa Bach RN) Month of 1st Visit: April (08/16/2016 11:39:Emelia Henley RN) Adequate Care: Yes (08/16/2016 11:39:Emelia Henley RN) Height (in): 64 (11/06/2016 10:33:QS system process) ALLERGIES Medication Allergy: No (08/16/2016 11:39:Emelia Henley RN) Medication Allergies: No Known Allergies (11/05/2016) (11/05/2016 23:04:QS system process) Latex Allergy: No Latex Allergies (08/16/2016 11:39:Emelia Henley RN) Food Allergies: none (08/16/2016 11:39:Marcia Ho RN) Environmental Allergies: none (08/16/2016 11:39:Marcia Ho RN) COMMUNICATION Primary Language: Mauritian (08/16/2016 11:39:Thania Saucedo RN) Medical Tx Preferred Language: Mauritian (08/16/2016 11:39:Thania Saucedo RN) Communication Barrier(s): None (08/16/2016 11:39:Cathy Lewis RN) DEMOGRAPHICS Address: [address] [place] [id number] (11/05/2016 20:13:QS system process) Zipcode: [address] (08/16/2016 11:30:QS system process) Home (08/16/2016 11:30:QS system process) Work (08/16/2016 11:30:QS system process) N: [phone] (08/16/2016 11:30:QS system process) Next of Kin Name: HIGINIO SAMUEL (08/16/2016 11:30:QS system process) Next of Kin (08/16/2016 11:30:QS system process) Next of Kin Relationship: SPO (08/16/2016 11:30:QS system process) Date of : 1980 (08/16/2016 11:30:QS system process) Marital Status: (08/16/2016 11:30:QS system process) Sex: Female (08/16/2016 11:30:QS system process) Race: (08/16/2016 11:30:QS system process) Ethnicity: Non- or (08/16/2016 11:30:QS system process) Roman Catholic: None (08/16/2016 11:30:QS system process) DRUG AND ALCOHOL USE Alcohol: No (08/16/2016 11:39:Emelia Henley RN) Cigarettes: Never Smoker. [id number] (08/16/2016 11:39:Emelia Henley RN) Marijuana: No (08/16/2016 11:39:Emelia Henley RN) Cocaine: No (08/16/2016 11:39:Emelia Henley RN) Other Illicit Drugs: No (08/16/2016 11:39:Emelia Henley RN) VACCINE HISTORY Influenza Vaccine: No (08/16/2016 11:39:Emelia Henley RN) Pneumococcal Vaccine: No (08/16/2016 11:39:Emelia Henley RN) Tetanus Vaccine: Yes (08/16/2016 11:39:Emelia Henley RN) Tdap Vaccine: Yes (08/16/2016 11:39:Emelia Henley RN) Hepatitis B Vaccine: No (08/16/2016 11:39:Eemlia Henley RN) Director Diabetes: [facility] (08/16/2016 11:39:Emelia Henley RN) Feeding Preference: Both (08/16/2016 11:39:Emelia Henley RN) Benefit of Breast Feed Discussed: Yes (08/16/2016 11:39:Emelia Henley RN) Circumcision: N/A (08/16/2016 11:39:Emelia Henley RN) Classes Attended: No (08/16/2016 11:39:Emelia Henley RN) Tubal Ligation: No (08/16/2016 11:39:Emelia Henley RN) Tubal Authorization Signed: N/A (08/16/2016 11:39:Emelia Henley RN) Consent: N/A (08/16/2016 11:39:Emelia Henley RN) Consent Signed: N/A (08/16/2016 11:39:Emelia Henley RN) Pain Management Plans: Epidural (08/16/2016 11:39:Emelia Henley, RN) Plans for Labor and Delivery: None (08/16/2016 11:39:Emelia Henley RN) Support Person: Higinio Pickering (08/16/2016 11:39:Emelia Henley RN) Support Person Relationship: (08/16/2016 11:39:Emelia Henley RN) Cultural/Spritual Practice: No (08/16/2016 11:39:Emelia Henley RN) Spir/Cult Dietary Needs: No (08/16/2016 11:39:Emelia Henley RN) LIVING SITUATION/DISCHARGE PLAN Living Arrangements: House (08/16/2016 11:39:Emelia Henley RN) Adequate Access to:: Electric; Heat; Refrigeration; Plumbing/Running water; Phone; Transportation (08/16/2016 11:39:Emelia Hneley RN) WIC Program: Yes (08/16/2016 11:39:Emelia Henley RN) Discharge Airport Ramp Agent Person: FOCaron (08/16/2016 11:39:Emelia Henley RN) Person to Help after Discharge: FOCaron (08/16/2016 11:39:Emelia Henley RN) Currently Using Commun Resources: No (08/16/2016 11:39:Emelia Henley RN) Outside Agency/Communication Arts Lecturer: No (08/16/2016 11:39:Emelia Henley RN) Car Seat for Discharge: Yes (08/16/2016 11:39:Emelia Henley RN) Adoption Requested: No (08/16/2016 11:39:Emelia Henley RN) Pt Contact w/ Post : N/A (08/16/2016 11:39:Emelia Henley RN) LABS Blood Type: O Positive (08/16/2016 11:39:Bijal High RN) Antibody Screen: negative (08/16/2016 11:39:Bijal High RN) Hemoglobin: 10.0 L (11/05/2016 20:45:QS system process) Hematocrit: 29.7 L (11/05/2016 20:45:QS system process) MCV: 90 (11/05/2016 20:45:QS system process) Group Beta Strep: Negative (08/16/2016 12:07:Marcia Ho RN) Gonorrhea: Negative (08/16/2016 11:39:Emelia Henley RN) Chlamydia: Negative (08/16/2016 11:39:Emelia Henley RN) RPR/VDRL: Nonreactive (08/16/2016 11:39:Emelia Henley RN) HIV Exposure Test: Negative (08/16/2016 11:39:Emelia Henley RN) HIV Results: non-reacttive (08/16/2016 11:39:Bijal High RN) Hepatitis B: Negative (08/16/2016 11:39:Bijal High RN) Rubella: Immune (08/16/2016 11:39:Bijal High RN) Rubella Titer: 165.50 (08/16/2016 11:39:Bijal Hgih RN) Varicella: Non Susceptible (08/16/2016 11:39:Bijal High RN) OB/PREVIOUS HISTORY Previous Procedures: Ultrasound; NST (08/16/2016 11:39:Melissa Bach RN) Current Procedures: Ultrasound; NST (08/16/2016 11:39:Melissa Bach RN) History of Previous : No (08/16/2016 11:39:Melissa Bach RN) History of Gestational Diabetes: No (08/16/2016 11:39:Melissa Bach RN) History of PIH: No (08/16/2016 11:39:Melissa Bach RN) History of Incompetent Cervix: No (08/16/2016 11:39:Melissa Bach RN) History of Placenta Previa/Abrup: No (08/16/2016 11:39:Melissa Bach RN) History of Macrosomia: No (08/16/2016 11:39:Melissa Bach RN) History of IUGR: No (08/16/2016 11:39:Melissa Bach RN) History of Hemorrhage: No (08/16/2016 11:39:Melissa Bach RN) History of Loss/Stillborn: No (08/16/2016 11:39:Melissa Bach RN) History of : No (08/16/2016 11:39:Melissa Bach RN) History of D (Rh) Sensitization: No (08/16/2016 11:39:Melissa Bach RN) History Recurrent Loss/Stillborn: No (08/16/2016 11:39:Melissa Bach RN) History Depression/PP Depression: No (08/16/2016 11:39:Melissa Bach RN) History of Uterine Anomaly/NARA: No (08/16/2016 11:39:Melissa Bach RN) History of Infertility: No (08/16/2016 11:39:Melissa Bach RN) History of ART Treatment: No (08/16/2016 11:39:Melissa Bach RN) History of NARA: No (08/16/2016 11:39:Melissa Bach RN) Comments Obstetrical History: G1- 2004 male 40 weeks 7lb0oz G2- 2007 male 34 weeks 5lb4oz PROM@34 weeks G3- 2009 male 36 weeks 5lb5oz PROM@36 weeks G4- 2013 SAB G5- 2014 male 38 weeks 6lb8oz G6- current currently taking p17 (08/16/2016 11:39:Melissa Bach RN) MEDICAL HISTORY Med Hx Diabetes: No (08/16/2016 11:39:Melissa Bach RN) Med Hx Hypertension: No (08/16/2016 11:39:Melissa Bach RN) Med Hx Heart Disease: No (08/16/2016 11:39:Melissa Bach RN) Med Hx Autoimmune Disorder: No (08/16/2016 11:39:Melissa Bach RN) Med Hx Kidney Disease/UTI: Yes (08/16/2016 11:39:Emelia Henley RN) Med Hx Neurologic/Epilepsy: No (08/16/2016 11:39:Melissa Bach RN) Med Hx Psychiatric Disorders: No (08/16/2016 11:39:Melissa Bach RN) Med Hx Hepatitis/Liver Disease: No (08/16/2016 11:39:Melissa Bach RN) Med Hx Varicosities/Phlebitis: No (08/16/2016 11:39:Melissa Bach RN) Med Hx Thyroid Dysfunction: No (08/16/2016 11:39:Melissa Bach RN) Med Hx Trauma/Violence: No (08/16/2016 11:39:Melissa Bach RN) Med Hx Blood Transfusion: No (08/16/2016 11:39:Melissa Bach RN) Med Hx Pulmonary (Asthma,TB): No (08/16/2016 11:39:Melissa Bach RN) Med Hx Breast: No (08/16/2016 11:39:Melissa Bach RN) Med Hx FUGITIVE INVESTIGATOR Surgery: No (08/16/2016 11:39:Melissa Bach RN) Med Hx Hospitalization/Surgery: Yes (08/16/2016 11:39:Cathy Lewsi RN) Med Hx Anesthetic Complications: No (08/16/2016 11:39:Melissa Bach RN) Med Hx Abnormal Pap Smear: No (08/16/2016 11:39:Melissa Bach RN) Other Medical Diseases: No (08/16/2016 11:39:Melissa Bach RN) Med Hx Significant Family Hx: No (08/16/2016 11:39:Melissa Bach RN) Details of Med/Surg Hx: CHILDBIRTH, kidney stones (08/16/2016 11:39:Emelia Henley RN) INFECTIOUS HISTORY Inf Hx Gonorrhea: No (08/16/2016 11:39:Melissa Bach RN) Inf Hx Chlamydia: No (08/16/2016 11:39:Melissa Bach RN) Inf Hx Syphilis: No (08/16/2016 11:39:Melissa Bach RN) Inf Hx HIV/AIDS: No (08/16/2016 11:39:Melissa Bach RN) Inf Hx Human Papilloma Virus: No (08/16/2016 11:39:Melissa Bach RN) 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 (08/16/2016 11:39:Emelia Henley RN) Inf Hx Tuberculosis/Exposure: No (08/16/2016 11:39:Melissa Bach RN) Inf Hx Hepatitis B,C: No (08/16/2016 11:39:Melissa Bach RN) Inf Hx Rash or Viral Illness: No (08/16/2016 11:39:Melissa Bach RN) Details of Infectious Hx: HSV - 2009 (08/16/2016 11:39:Emelia Henley RN) GENETIC HISTORY Gen Hx Age >=35 at MATTHEW: No (08/16/2016 11:39:Melissa Bach RN) Gen Hx Thalassemia: No (08/16/2016 11:39:Melissa Bach RN) Gen Hx Congenital Heart Defect: No (08/16/2016 11:39:Melissa Bach RN) Gen Hx Neural Tube Defect: No (08/16/2016 11:39:Melissa Bach RN) Gen Hx Down's Syndrome: No (08/16/2016 11:39:Melissa Bach RN) Gen Hx Jayme-Sachs: No (08/16/2016 11:39:Melissa Bach RN) Gen Hx Natasah: No (08/16/2016 11:39:Melissa Bach RN) Gen Hx Familial Dysautonomia: No (08/16/2016 11:39:Melissa Bach RN) Gen Hx Sickle Cell Disease/Trait: No (08/16/2016 11:39:Melissa Bach RN) Gen Hx Hemophilia/Blood Disorder: No (08/16/2016 11:39:Melissa Bach RN) Gen Hx Muscular Dystrophy: No (08/16/2016 11:39:Melissa Bach RN) Gen Hx Cystic Fibrosis: No (08/16/2016 11:39:Melissa Bach RN) Gen Hx Hunting[place] Chorea: No (08/16/2016 11:39:Melissa Bach RN) Gen Hx Mental Retardation/Autism: No (08/16/2016 11:39:Melissa Bach RN) Gen Hx Tested for Fragile X: No (08/16/2016 11:39:Melissa Bach RN) Gen Hx Other Inher/Chromosomal: No (08/16/2016 11:39:Melissa Bach RN) Gen Hx Maternal Metabolic DO: No (08/16/2016 11:39:Melissa Bach RN) Gen Hx Pt Father or FOB Defect: No (08/16/2016 11:39:Melissa Bach RN) Gen Hx Other Genetic History: No (08/16/2016 11:39:Melissa Bach RN) Gen Hx Drugs/Meds since LMP: Yes (08/16/2016 11:39:Emelia Henley RN) Gen Hx Medications: PNV, biotin, valtrex (08/16/2016 11:39:Emelia Henley RN)
[2016-11-07 07:04] LABS: HEMATOCRIT 30.1 % (36.0-47.0); HEMOGLOBIN 10.1 g/dL (12.0-15.5); HGB HCT DIFFERENCE 0.2; MEAN CORPUSCULAR HEMOGLOBIN 30.7 pg (27.0-33.4); MEAN CORPUSCULAR HGB CONC 33.5 g/dL (32.0-36.0); MEAN CORPUSCULAR VOLUME 91 fl (80-97); RED BLOOD COUNT 3.29 10^6/uL (3.72-5.28); RED CELL DISTRIBUTION WIDTH 14.5 % (11.5-14.0); WHITE BLOOD COUNT 10.1 10^3/uL (4.0-10.5)
[2016-11-07 07:40] VITALS: BP 122/67
[2016-11-07] MEDS: DOCUSATE SODIUM 100 MG CAPSULE PO SCH ×2 (09:14→17:17)
[2016-11-07] MEDS: PRENATAL VITAMIN W-O CA NO5/FE FUMARATE/FA CAPSULE PO SCH (09:14)
[2016-11-07] MEDS: FERROUS SULFATE 325 MG TABLET PO SCH ×2 (09:15→17:17)
[2016-11-07] MEDS: SENNOSIDES/DOCUSATE 8.6-50 MG 1 EACH TABLET PO SCH (09:15)
--- NOTE | 2016-11-07 10:05 | PDOC PROGRESS REPORT ---
Subjective-OB Subjective: Post Delivery Day: 36 year old. Denies any needs at this time. Ready to go home. Physical Exam (OB) Vital Signs: Temp Pulse Resp BP Pulse Ox 98.3 F 59 L 17 122/67 100 11/07/16 07:12 11/07/16 07:12 11/06/16 19:48 11/07/16 07:12 11/07/16 07:12 Intake & Output 11/06/16 11/07/16 11/08/16 06:59 06:59 06:59 Intake Total 600 Balance 600 Weight 82.9 kg - Lochia Lochia Amount: Scant < 10 ml Lochia Color: Rubra/Red - Abdomen Description: Tender, Soft Hernia Present: No Bowel Sounds: Normoactive Flatus Presence: Present Stool: Yes Fundal Description: Firm, Midline Fundal Height: u/u - u/2 Objective-Diagnostic Laboratory: 11/07/16 06:53 11/07/16 06:53 WBC 10.1 RBC 3.29 L Hgb 10.1 L Hct 30.1 L MCV 91 MCH 30.7 MCHC 33.5 RDW 14.5 H Plt Count 131 L
--- NOTE | 2016-11-07 10:11 | PDOC DISCHARGE SUMMARY ---
Final Diagnosis Discharge Date: 11/07/16 - Final Diagnosis (1) AMA (advanced maternal age) multigravida 35+ Is this a current diagnosis for this admission?: Yes (2) Chlamydia infection affecting , antepartum Is this a current diagnosis for this admission?: Yes (3) Delivery normal Is this a current diagnosis for this admission?: Yes (4) Gestational hypertension Is this a current diagnosis for this admission?: Yes (5) History of FOX positive for HSV Is this a current diagnosis for this admission?: Yes (6) History of delivery, currently Is this a current diagnosis for this admission?: Yes (7) Is this a current diagnosis for this admission?: Yes Discharge Data - Discharge Medication Home Medications: Bkv978/Iron Fumarate/FA/Dss [Se- 19 Tablet] 1 each PO DAILY 09/02/13 Ibuprofen [Motrin 800 mg Tablet] 800 mg PO Q8 #30 tablet 11/07/16 Gestational Age: 38.4 wks Reason(s) for Admission: Onset of Labor Procedures: Ultrasound Intrapartum Procedure(s): Spontaneous Vaginal Delivery - Data Baby 1 Female at 1 minute: 8 at 5 minutes: 9 Weight: 2.892 kg Home with Mother: Yes Complications: No - Diagnosis Test Laboratory: Temp Pulse Resp BP Pulse Ox 98.3 F 59 L 17 122/67 100 11/07/16 07:12 11/07/16 07:12 11/06/16 19:48 11/07/16 07:12 11/07/16 07:12 11/05/16 11/05/16 11/07/16 18:15 20:45 06:53 RBC 3.30 L 3.29 L Hgb 10.0 L 10.1 L Hct 29.7 L 30.1 L Urine Opiates Screen NEGATIVE - Discharge information/Instructions Discharge Activity: Activity As Tolerated, Balance Activity w/Rest, Pelvic Rest , Slowly Increase Activity, No tub bath Discharge Diet: Regular Disposition: HOME, SELF-CARE Follow up with: [facility] in: 4, Weeks
== END 2016-11-07 19:20 | disposition home or self-care (01) | DRG 774 ==
LOC: LC 18:11 → LR 20:13 → 2S 11-06 03:50
PROVIDERS: ADMIT Student in an Organized Health Care Education/Training Program; ATTEND Student in an Organized Health Care Education/Training Program
PROC: 10E0XZZ Delivery of Products of Conception, External Approach (ICD-10-PCS; principal; 2016-11-06)
DX: O13.4 Gestational [pregnancy-induced] hypertension without significant proteinuria, complicating childbirth (principal); O98.32 Other infections with a predominantly sexual mode of transmission complicating childbirth; O76 Abnormality in fetal heart rate and rhythm complicating labor and delivery; A60.00 Herpesviral infection of urogenital system, unspecified; Z37.0 Single live birth; Z3A.00 Weeks of gestation of pregnancy not specified; Z79.899 Other long term (current) drug therapy
CPT/HCPCS: 36415; 80307; 81005; 85025; 85027; 86592; 86850; 86900; 86901; 90686; 94760; J2590; J3490

== ENCOUNTER 2016-11-11 17:42 | Emergency (ER) | payer MEDICAID ==
--- NOTE | 2016-11-11 18:45 | ER Document Report ---
ED Medical Screen (RME) - General Stated Complaint: CHEST PAIN Notes: 36 yo female 6 day post , vaginal delivery, c/o tightness to chest and throat, swelling to both hands and feet since delivery. Pt was seen by OB yesterday, instructed to elevate legs, push po. symptoms worsened today. lips feel numb. OB - [facility] lungs clear, Sat 100%. Resp effort nonlabored BP slightly elevated 154/77 TRAVEL OUTSIDE OF THE [place] IN LAST 30 DAYS: No - Related Data Allergies/Adverse Reactions: No Known Allergies Allergy (Verified 11/11/16 18:38) Past Medical History - Past Medical History Cardiac Medical History: Denies: Hx Coronary Artery Disease, Hx DVT, Hx Pulmonary Embolism Pulmonary Medical History: Denies: Hx Asthma Renal/ Medical History: Reports: Hx Kidney Stones, Hx Ovarian Cysts - Immunizations Hx Diphtheria, Pertussis, Tetanus Vaccination: Yes Physical Exam - Vital signs Vitals: Temp Pulse Resp BP Pulse Ox 98.7 F 50 L 14 153/77 H 100 11/11/16 17:55 11/11/16 17:55 11/11/16 17:55 11/11/16 17:55 11/11/16 17:55 Course - Vital Signs Vital signs: Temp Pulse Resp BP Pulse Ox 98.7 F 50 L 14 153/77 H 100 11/11/16 17:55 11/11/16 17:55 11/11/16 17:55 11/11/16 17:55 11/11/16 17:55
[2016-11-11 19:01] LABS: ABSOLUTE BASOPHILS # (AUTO) 0.1 10^3/uL (0.0-0.2); ABSOLUTE EOSINOPHILS # (AUTO) 0.2 10^3/uL (0.0-0.6); ABSOLUTE LYMPHOCYTES (AUTO) 2.1 10^3/uL (0.5-4.7); ABSOLUTE MONOCYTES (AUTO) 0.7 10^3/uL (0.1-1.4); ABSOLUTE NEUT (AUTO) 5.4 10^3/uL (1.7-8.2); BASOPHILS % (AUTO) 1.2 % (0-2); EOSINOPHILS % (AUTO) 2.6 % (0-6); HEMATOCRIT 34.7 % (36.0-47.0); HEMOGLOBIN 11.4 g/dL (12.0-15.5); HGB HCT DIFFERENCE -0.5; MEAN CORPUSCULAR HEMOGLOBIN 29.9 pg (27.0-33.4); MEAN CORPUSCULAR HGB CONC 32.7 g/dL (32.0-36.0); MEAN CORPUSCULAR VOLUME 92 fl (80-97); MONOCYTES % (AUTO) 7.6 % (3-13); RED CELL DISTRIBUTION WIDTH 14.3 % (11.5-14.0); SEGMENTED NEUTROPHILS % (AUTO) 63.6 % (42-78); WHITE BLOOD COUNT 8.6 10^3/uL (4.0-10.5)
[2016-11-11 19:13] LABS: APPEARANCE,URINE SLIGHTLY-CLOUDY; BILIRUBIN,URINE NEGATIVE (NEGATIVE); GLUCOSE, URINE NEGATIVE (NEGATIVE); KETONES,URINE NEGATIVE (NEGATIVE); LEUKOCYTE ESTERASE,URINE LARGE (NEGATIVE); NITRITE,URINE NEGATIVE (NEGATIVE); PROTEIN,URINE NEGATIVE (NEGATIVE); URINE SPECIFIC GRAVITY 1.011; UROBILINOGEN,URINE NEGATIVE mg/dL (<2.0)
[2016-11-11 19:17] LABS: ALANINE AMINOTRANSFERASE 40 U/L (9-52); ALBUMIN 3.6 g/dL (3.5-5.0); ALKALINE PHOSPHATASE 106 U/L (38-126); ANION GAP 7 (5-19); ASPARTATE AMINO TRANSFERASE 33 U/L (14-36); BILIRUBIN,DIRECT 0.1 mg/dL (0.0-0.4); BILIRUBIN,TOTAL 0.3 mg/dL (0.2-1.3); BLOOD UREA NITROGEN 10 mg/dL (7-20); CALCIUM 9.9 mg/dL (8.4-10.2); CARBON DIOXIDE 28 mmol/L (22-30); CHLORIDE 108 mmol/L (98-107); CREATININE RESULT 0.79 mg/dL (0.52-1.25); GLUCOSE 90 mg/dL (75-110); POTASSIUM 3.7 mmol/L (3.6-5.0); SODIUM 143.4 mmol/L (137-145); TOTAL PROTEIN 6.3 g/dL (6.3-8.2)
[2016-11-11] MEDS ORDERED: METOCLOPRAMIDE HCL ORAL SOLN 10 MG/10 ML UDCUP PO ONE (20:37)
[2016-11-11] MEDS ORDERED: MAG HYDROX/AL HYDROX/SIMETH SUSP 30 ML UDCUP PO ONE (20:37)
[2016-11-11] MEDS ORDERED: LIDOCAINE 2% VISCOUS SOLN 20 ML UDCUP PO ONE (20:37)
--- NOTE | 2016-11-11 20:42 | ER Document Report ---
ED General - General Chief Complaint: Swelling of Lower Extremity Stated Complaint: CHEST PAIN Notes: Patient is a 36-year-old female 6 days who presents with concerns of bilateral ankle swelling and feelings like her throat is tight or it is difficult for her to swallow. She was seen by her BUNGHOLE BORER yesterday for follow- up visit and told to increase fluids and keep her legs elevated. States that these maneuvers had not reduced her swelling in her ankles and this is what prompted her to come to the emergency department. Nothing has worsened her symptoms. Denies history of similar symptoms during prior pregnancies. She did have hypertension during but denies any history of preeclampsia or eclampsia during her . She denies any headache, chest pain or shortness of breath. This is contrary to the stated chief complaint and triage assessment some which patient did apparently complain of some shortness of breath. To me she states it is more of a feeling of throat tightness. TRAVEL OUTSIDE OF THE [place] IN LAST 30 DAYS: No - Related Data Allergies/Adverse Reactions: No Known Allergies Allergy (Verified 11/11/16 18:38) Past Medical History - General Information source: Patient - Social History Smoking Status: Never Smoker Chew tobacco use (# tins/day): No Frequency of alcohol use: None Drug Abuse: None Lives with: Spouse/Significant other Family History: Hyperlipidemia Patient has suicidal ideation: No Patient has homicidal ideation: No - Past Medical History Cardiac Medical History: Denies: Hx Coronary Artery Disease, Hx DVT, Hx Pulmonary Embolism Pulmonary Medical History: Denies: Hx Asthma Renal/ Medical History: Reports: Hx Kidney Stones, Hx Ovarian Cysts. Denies: Hx Peritoneal Dialysis Surgical Hx: Negative - Immunizations Hx Diphtheria, Pertussis, Tetanus Vaccination: Yes Review of Systems - Review of Systems Notes: Constitutional: Negative for fever. HENT: Positive for throat tightness Eyes: Negative for visual changes. Cardiovascular: Negative for chest pain. Respiratory: Negative for shortness of breath. Gastrointestinal: Negative for abdominal pain, vomiting or diarrhea. Genitourinary: Negative for dysuria. Musculoskeletal: Negative for back pain. Skin: Positive for lower extremity edema Neurological: Negative for headaches, weakness or numbness. 10 point ROS negative except as marked above and in HPI. Physical Exam - Vital signs Vitals: Temp Pulse Resp BP Pulse Ox 98.7 F 50 L 14 153/77 H 100 11/11/16 17:55 11/11/16 17:55 11/11/16 17:55 11/11/16 17:55 11/11/16 17:55 Interpretation: Hypertensive, Bradycardic Notes: PHYSICAL EXAMINATION: GENERAL: Well-appearing, well-nourished and in no acute distress. HEAD: Atraumatic, normocephalic. EYES: Pupils equal round and reactive to light, extraocular movements intact, sclera anicteric, conjunctiva are normal. ENT: nares patent, oropharynx clear without exudates. Moist mucous membranes. NECK: Normal range of motion, supple without lymphadenopathy LUNGS: Breath sounds clear to auscultation bilaterally and equal. No wheezes rales or rhonchi. HEART: Regular rate and rhythm without murmurs ABDOMEN: Soft, nontender, normoactive bowel sounds. No guarding, no rebound. No masses appreciated. EXTREMITIES: Normal range of motion, mild edema to the bilateral ankles without pitting. Symmetric. NEUROLOGICAL: No focal neurological deficits. Moves all extremities spontaneously and on command. PSYCH: Normal mood, normal affect. SKIN: Warm, Dry, normal turgor, no rashes or lesions noted. Course - Re-evaluation Re-evalutation: 11/11/16 20:40 Patient presents with concerns of bilateral lower extremities edema . She also complains of some throat tightness and pain with swallowing. Contrary to the stated chief complaint patient denies chest pain or shortness of breath stating it feels more like she has difficulty swallowing and points to her throat when asked where she is having discomfort. She denies any pleuritic pain, shortness of breath, hemoptysis, or exertional dyspnea to suggest acute pulmonary embolus. She has no tachycardia, dyspnea or hypoxemia at presentation to indicate a need for a workup for pulmonary embolus. Chest x- ray is clear. Laboratories ordered in triage likewise are unremarkable. Patient is noted to have hypertension at time of presentation. She did not have preeclampsia or eclampsia during this but did have essential hypertension which was treated for part of her . There is no protein in her urine. No LFT changes. She does not present with any symptoms concerning for a presentation of preeclampsia. She denies any headache, confusion or vomiting. I've instructed her to continue to monitor blood pressure at home and follow closely with her BUNGHOLE BORER.At this time will discharge with return precautions and follow-up recommendations. Verbal discharge instructions given a the bedside and opportunity for questions given. Medication warnings reviewed. Patient is in agreement with this plan and has verbalized understanding of return precautions and the need for primary care follow-up in the next 24-72 hours. - Vital Signs Vital signs: Temp Pulse Resp BP Pulse Ox 98.7 F 50 L 13 171/90 H 100 11/11/16 17:55 11/11/16 17:55 11/11/16 21:00 11/11/16 20:30 11/11/16 20:30 - Laboratory Result Diagrams: 11/11/16 18:45 11/11/16 18:45 Laboratory results interpreted by me: 11/11/16 11/11/16 11/11/16 18:45 18:45 18:45 Hgb 11.4 L Hct 34.7 L RDW 14.3 H Chloride 108 H Urine Blood LARGE H Ur Leukocyte Esterase LARGE H Urine Ascorbic Acid 20 H - Diagnostic Test Radiology reviewed: Image reviewed, Reports reviewed Radiology results interpreted by me: 11/11/16 20:42 Chest x-ray: No acute infiltrate or pneumothorax - EKG Interpretation by Me Additional EKG results interpreted by me: 11/11/16 20:42 Sinus bradycardia. Rate 52. No ST elevations or depressions. QTc is 376. Discharge - Discharge Clinical Impression: hypertension, Throat pain Condition: Good Disposition: HOME, SELF-CARE Additional Instructions: Please follow-up with your BUNGHOLE BORER regarding your blood pressure. You can wear compression stockings to help reduce the swelling in your legs. Return if you develop shortness of breath, vomiting, pass out or any other symptoms that are worrisome to you. You can start taking an [id number] acid reducing medication such as famotidine 20 mg in the morning and at night. Referrals: ANTHONY TRIANA MD [Primary Care Provider] - Follow up tomorrow
[2016-11-11 21:06] VITALS: BP 171/90
--- NOTE | 2016-11-12 08:14 | EKG REPORT ---
SEVERITY:- NORMAL ECG - SINUS RHYTHM : Confirmed by: Colleen Arevalo 12-Nov-2016 08:14:14
== END 2016-11-11 21:15 | disposition home or self-care (01) ==
LOC: ER 17:42
DX: O14.95 Unspecified pre-eclampsia, complicating the puerperium (principal); O90.89 Other complications of the puerperium, not elsewhere classified; R07.0 Pain in throat; R09.89 Other specified symptoms and signs involving the circulatory and respiratory systems; R00.1 Bradycardia, unspecified
CPT/HCPCS: 93005; 99285; 36415; 85025; 80053; 81001; 71020; 93010; J3490 ×3

== ENCOUNTER 2016-12-31 15:50 | Emergency (ER) | payer MEDICAID ==
[2016-12-31 16:04] VITALS: BP 149/83
== END 2016-12-31 18:34 | disposition left against medical advice (07) ==
LOC: ER 15:50
DX: Z53.21 Procedure and treatment not carried out due to patient leaving prior to being seen by health care provider (principal)

== ENCOUNTER 2017-05-03 09:26 | Emergency (ER) | payer SELFPAY ==
[2017-05-03] MEDS ORDERED: IBUPROFEN 800 MG TABLET PO ONE (10:12)
--- NOTE | 2017-05-03 10:18 | ER Document Report ---
ED Fall - General Chief Complaint: Fall Stated Complaint: FALL LEG PAIN Time Seen by Provider: 05/03/17 10:00 Mode of Arrival: Wheelchair Information source: Patient Notes: 36-year-old female presents to ED for complaint of pain in her right knee and left ankle after falling down several stairs. She does not have any bruising but she does have minimal swelling to the right knee and left ankle. Patient has full range of motion to both but has some tenderness with range of motion. TRAVEL OUTSIDE OF THE [place] 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 denies: Arthritis, CAD, COPD, CVA, DM, Hypertension, Malignancy, Thyroid Disfunction Patient has suicidal ideation: No Patient has homicidal ideation: No - Past Medical History Cardiac Medical History: Denies: Hx Coronary Artery Disease, Hx DVT, Hx Pulmonary Embolism Pulmonary Medical History: Denies: Hx Asthma EENT Medical History: Reports: None Neurological Medical History: Reports: None Endocrine Medical History: Reports: None Renal/ Medical History: Reports: Hx Kidney Stones, Hx Ovarian Cysts Malignancy Medical History: Reports: None GI Medical History: Reports: None Musculoskeltal Medical History: Reports None Skin Medical History: Reports None Psychiatric Medical History: Reports: None Traumatic Medical History: Reports: None - Immunizations Hx Diphtheria, Pertussis, Tetanus Vaccination: Yes Review of Systems - Review of Systems Constitutional: No symptoms reported EENT: No symptoms reported Cardiovascular: No symptoms reported Respiratory: No symptoms reported Gastrointestinal: No symptoms reported Genitourinary: No symptoms reported Female Genitourinary: No symptoms reported Musculoskeletal: Joint pain - right knee and left ankle pain from fall down steps Skin: No symptoms reported Hematologic/Lymphatic: No symptoms reported Neurological/Psychological: No symptoms reported -: Yes All other systems reviewed and negative Physical Exam - Vital signs Vitals: Temp Pulse Resp BP Pulse Ox 98.8 F 75 18 130/83 H 96 05/03/17 09:53 05/03/17 09:53 05/03/17 09:53 05/03/17 09:53 05/03/17 09:53 Interpretation: Normal - General General appearance: Appears well, Alert - HEENT Head: Normocephalic, Atraumatic Eyes: Normal Pupils: PERRL - Respiratory Respiratory status: No respiratory distress Chest status: Nontender Breath sounds: Normal Chest palpation: Normal - Cardiovascular Rhythm: Regular Heart sounds: Normal auscultation Murmur: No - Abdominal Inspection: Normal Distension: No distension Bowel sounds: Normal Tenderness: Nontender Organomegaly: No organomegaly - Back Back: Normal, Nontender - Extremities General upper extremity: Normal inspection, Nontender, Normal color, Normal ROM , Normal temperature General lower extremity: Normal color, Normal ROM, Normal temperature, Normal weight bearing. No: Marty's sign Knee: Tender, Pain with ROM, Patellar tendon intact, Tender joint line. No: Abrasion, Deformity, Dislocation, Drawer's test instability, Ecchymosis, Instability, Laceration, Laxity with valgus stress, Laxity with varus stress, Popliteal fossa tender Calf: Normal, Nontender Ankle: Tender Foot: Tender, No evidence of FB - Neurological Neuro grossly intact: Yes Cognition: Normal Orientation: AAOx4 [place] Coma Scale Eye Opening: Spontaneous [place] Coma Scale Verbal: Oriented [place] Coma Scale Motor: Obeys Commands [place] Coma Scale Total: 15 Speech: Normal Motor strength normal: LUE, RUE, LLE, RLE Sensory: Normal - Psychological Associated symptoms: Normal affect, Normal mood - Skin Skin Temperature: Warm Skin Moisture: Dry Skin Color: Normal Course - Re-evaluation Re-evalutation: 05/03/17 13:50 Discussed x-rays with patient and family. Been report of x-rays given the patient and instructed to follow-up with orthopedics. Patient was treated with Marcellus wraps and crutches. - Vital Signs Vital signs: Temp Pulse Resp BP Pulse Ox 98.4 F 66 16 145/80 H 95 05/03/17 11:50 05/03/17 11:50 05/03/17 11:50 05/03/17 11:50 05/03/17 11:50 - Diagnostic Test Radiology reviewed: Image reviewed, Reports reviewed Procedures - Immobilization Left Ankle Time completed: :46 Immobilizer type: Marcellus wrap Performed by: PCT Post-Proc Neuro Vasc Exam: Normal Alignment checked and good: Yes Right Knee Time completed: :46 Immobilizer type: Marcellus wrap, Crutches Performed by: PCT Post-Proc Neuro Vasc Exam: Normal Alignment checked and good: Yes Discharge - Discharge Clinical Impression: Fall down stairs Qualifiers: Encounter type: initial encounter Qualified Code(s): W10.8XXA - Fall (on) (from ) other stairs and steps, initial encounter Left ankle sprain Qualifiers: Encounter type: initial encounter Involved ligament of ankle: unspecified ligament Qualified Code(s): S93.402A - Sprain of unspecified ligament of left ankle, initial encounter Injury of right knee Qualifiers: Encounter type: initial encounter Qualified Code(s): S89.91XA - Unspecified injury of right lower leg, initial encounter Condition: Stable Disposition: HOME, SELF-CARE Additional Instructions: SPRAINED ANKLE: Your sprained ankle results from stretching or tearing of the ligaments which support the ankle. This usually results from twisting the foot inward and under. The ligaments will require time and protection in order to heal properly. Many ankle sprains are quite disabling, and should be taken seriously. The usual treatment for an ankle sprain is cold packs; protection with tape , splints, or wraps; elevation; and staying off the ankle for at least a day. As the ankle improves, you can walk IF it's not painful to bear weight. Sports are best postponed until healing is complete. More serious sprains usually require strengthening exercises after early healing. Your physician has assessed the seriousness of the ligament injury to your ankle. However, the treatment may change, depending on how your ankle progresses. If further exams were recommended, it is important that you follow through. Call the doctor if your foot becomes numb, painful, or severely swollen. MARCELLUS WRAP: A compression dressing (marcellus wrap) has been placed. This helps hold the area still. It limits swelling and internal bleeding. The wrap should be comfortably snug -- not tight. You should feel a sense of pressure, but not severe pain under the wrap. Unless the physician tells you otherwise, you can adjust the wrap for comfort. If the wrap causes symptoms suggesting it's too tight -- uncomfortable pressure, swelling or discoloration beyond the wrap, numbness, or severe pain - - you must loosen the wrap. If these symptoms don't resolve promptly, return for re-evaluation. USE OF CRUTCHES: The doctor has recommended that you not bear weight at this time. You will need to use crutches. Adjust the crutches so the tops come to about two inches under the armpit while you are standing upright. Use your hands -- not your armpits -- to support your weight. To get into a chair, support yourself with one crutch on the injured side. Hold the chair with the other hand, then lower yourself while putting all your weight on the good leg. Going up stairs is `good leg up, step up, then bring up crutches and bad leg.' Down stairs is `bad leg and crutches down, then bring good leg down.' If you develop numbness or swelling in an arm or hand, you are using the crutches incorrectly. Return if you are having any problems with the crutches. ICE & ELEVATION: Apply ice packs frequently against the painful area. Many different schedules are recommended, such as "20 minutes on, 20 minutes off" or "one hour ice, two hours rest." If you need to work, you may need to go longer between ice treatments. You should plan to have the area ice packed AT LEAST one- fourth of the time. The ice should be applied over the wrap, tape, or splint, or over a layer of cloth -- not directly against the skin. Some ice bags have a built-in cloth and can be put directly on the skin. Your injured part should be elevated as much as possible over the next 48 hours. Try to keep the injury above the level of the heart. Avoid use of the injured area. Elevation and rest will decrease the swelling. USE OF [id number]-[id number] IBUPROFEN: Ibuprofen (Advil, Nuprin, Medipren, Motrin IB) is a medication for fever and pain control. In addition, it has anti- inflammatory effects which may be beneficial, especially in the treatment of injuries. It's best to take ibuprofen with food. Persons with ulcer disease or allergy to aspirin should notify their physician of this before taking ibuprofen. Ibuprofen can be given every four to six hours, for a total of four doses daily. Age Pain or fever dose Antiinflammatory dose 6-8 yr 200 mg (1 tab) 200 mg (1 tab) 9-11 yr 200 mg (1 tab) 200-400 mg (1-2 tab) 11-14 yr 200-400 mg (1-2 tab) 400 mg (2 tab) 15-adult 400 mg (2 tab) 600 mg (3 tab) FOLLOW-UP CARE: If you have been referred to a physician for follow-up care, call the physician s office for an appointment as you were instructed or within the next two days. If you experience worsening or a significant change in your symptoms, notify the physician immediately or return to the Emergency Department at any time for re-evaluation. Forms: Elevated Blood Pressure, Return to Work Referrals: OCTAVIO OLIVEIRA MD [Primary Care Provider] - Follow up as needed DOMINIC LOPEZ DO [ACTIVE STAFF] - Follow up as needed
--- NOTE | 2017-05-03 11:02 | RADIOLOGY REPORT (SQ) ---
EXAM DESCRIPTION: ANKLE LEFT COMPLETE COMPLETED DATE/TIME: 05/03/2017 10:54 am REASON FOR STUDY: fall down stairs COMPARISON: None. NUMBER OF VIEWS: Three views. TECHNIQUE: AP, lateral, and oblique radiographic images acquired of the left ankle. LIMITATIONS: None. FINDINGS: MINERALIZATION: Normal. BONES: No acute fracture or dislocation. No worrisome bone lesions. JOINTS: No effusions. SOFT TISSUES: No soft tissue swelling. No foreign body. OTHER: No other significant finding. IMPRESSION: NEGATIVE STUDY OF THE LEFT ANKLE. NO RADIOGRAPHIC EVIDENCE OF ACUTE INJURY. TECHNICAL DOCUMENTATION: JOB ID: [id number] [employer]- All Rights Reserved
--- NOTE | 2017-05-03 11:03 | RADIOLOGY REPORT (SQ) ---
EXAM DESCRIPTION: KNEE RIGHT 4 VIEWS COMPLETED DATE/TIME: 05/03/2017 10:54 am REASON FOR STUDY: fall down stairs COMPARISON: None. NUMBER OF VIEWS: Four views. TECHNIQUE: AP, lateral, and both oblique radiographic images acquired of the right knee. LIMITATIONS: None. FINDINGS: MINERALIZATION: Normal. BONES: No acute fracture or dislocation. No worrisome bone lesions. JOINT: No effusion. SOFT TISSUES: No soft tissue swelling. No radio-opaque foreign body. OTHER: No other significant finding. IMPRESSION: NEGATIVE STUDY OF THE RIGHT KNEE. NO RADIOGRAPHIC EVIDENCE OF ACUTE INJURY. TECHNICAL DOCUMENTATION: JOB ID: [id number] [employer]- All Rights Reserved
--- NOTE | 2017-05-03 11:06 | RADIOLOGY REPORT (SQ) ---
EXAM DESCRIPTION: FOOT LEFT COMPLETE COMPLETED DATE/TIME: 05/03/2017 10:54 am REASON FOR STUDY: Pain from falling down the stairs COMPARISON: None. NUMBER OF VIEWS: Three views. TECHNIQUE: AP, lateral and oblique radiographic images acquired of the left foot. LIMITATIONS: None. FINDINGS: MINERALIZATION: Normal. BONES: No acute fracture or dislocation. No worrisome bone lesions. JOINTS: No effusions. SOFT TISSUES: No soft tissue swelling. No foreign body. OTHER: No other significant finding. IMPRESSION: NEGATIVE STUDY OF THE LEFT FOOT. NO RADIOGRAPHIC EVIDENCE OF ACUTE INJURY. TECHNICAL DOCUMENTATION: JOB ID: [id number] [employer]- All Rights Reserved
[2017-05-03 11:52] VITALS: BP 145/80
== END 2017-05-03 11:52 | disposition home or self-care (01) ==
LOC: ER 09:26
DX: S93.402A Sprain of unspecified ligament of left ankle, initial encounter (principal); S89.91XA Unspecified injury of right lower leg, initial encounter; M25.561 Pain in right knee; M25.572 Pain in left ankle and joints of left foot; W10.9XXA Fall (on) (from) unspecified stairs and steps, initial encounter
CPT/HCPCS: 99283

== ENCOUNTER → 2017-11-27 | Outpatient (CLI) | payer BC, OTHER ==
[2017-11-27 11:28] LABS: HEMATOCRIT 35.5 % (36.0-47.0); HEMOGLOBIN 11.8 g/dL (12.0-15.5); MEAN CORPUSCULAR HEMOGLOBIN 29.7 pg (27.0-33.4); MEAN CORPUSCULAR HGB CONC 33.3 g/dL (32.0-36.0); MEAN CORPUSCULAR VOLUME 89 fl (80-97); PLATELET COUNT 233 10^3/uL (150-450); RED BLOOD COUNT 3.98 10^6/uL (3.72-5.28); WHITE BLOOD COUNT 6.5 10^3/uL (4.0-10.5)
[2017-11-27 11:42] LABS: APPEARANCE,URINE SLIGHTLY-CLOUDY; BILIRUBIN,URINE NEGATIVE (NEGATIVE); COLOR,URINE YELLOW; GLUCOSE, URINE NEGATIVE (NEGATIVE); KETONES,URINE NEGATIVE (NEGATIVE); LEUKOCYTE ESTERASE,URINE TRACE (NEGATIVE); NITRITE,URINE NEGATIVE (NEGATIVE); PROTEIN,URINE NEGATIVE (NEGATIVE); URINE SPECIFIC GRAVITY 1.025; UROBILINOGEN,URINE NEGATIVE mg/dL (<2.0)
[2017-11-27 11:48] LABS: ANION GAP 10 (5-19); BLOOD UREA NITROGEN 10 mg/dL (7-20); CALCIUM 9.6 mg/dL (8.4-10.2); CARBON DIOXIDE 27 mmol/L (22-30); CHLORIDE 108 mmol/L (98-107); GLUCOSE 79 mg/dL (75-110); POTASSIUM 4.3 mmol/L (3.6-5.0); SODIUM 144.6 mmol/L (137-145)
== END ==
LOC: OD 10:47
PROVIDERS: ATTEND Internal Medicine Nephrology
DX: N17.8 Other acute kidney failure (principal); K59.00 Constipation, unspecified; N20.0 Calculus of kidney
CPT/HCPCS: 36415; 80048; 81001; 85027

== ENCOUNTER 2018-02-08 23:34 | Emergency (ER) | payer BC, OTHER ==
[2018-02-09 00:46] LABS: ABSOLUTE BASOPHILS # (AUTO) 0.1 10^3/uL (0.0-0.2); ABSOLUTE EOSINOPHILS # (AUTO) 0.1 10^3/uL (0.0-0.6); ABSOLUTE MONOCYTES (AUTO) 0.8 10^3/uL (0.1-1.4); ABSOLUTE NEUT (AUTO) 6.8 10^3/uL (1.7-8.2); BASOPHILS % (AUTO) 0.6 % (0-2); EOSINOPHILS % (AUTO) 1.2 % (0-6); HEMATOCRIT 34.5 % (36.0-47.0); HEMOGLOBIN 11.4 g/dL (12.0-15.5); LYMPHOCYTES % (AUTO) 20.5 % (13-45); MEAN CORPUSCULAR HEMOGLOBIN 29.8 pg (27.0-33.4); MEAN CORPUSCULAR HGB CONC 33.1 g/dL (32.0-36.0); MEAN CORPUSCULAR VOLUME 90 fl (80-97); MONOCYTES % (AUTO) 7.9 % (3-13); PLATELET COUNT 226 10^3/uL (150-450); RED BLOOD COUNT 3.83 10^6/uL (3.72-5.28); RED CELL DISTRIBUTION WIDTH 13.1 % (11.5-14.0); SEGMENTED NEUTROPHILS % (AUTO) 69.8 % (42-78); TOTAL CELLS COUNTED % (AUTO) 100 %; WHITE BLOOD COUNT 9.7 10^3/uL (4.0-10.5)
[2018-02-09 00:49] LABS: APPEARANCE,URINE SLIGHTLY-CLOUDY; BILIRUBIN,URINE NEGATIVE (NEGATIVE); COLOR,URINE YELLOW; GLUCOSE, URINE NEGATIVE (NEGATIVE); KETONES,URINE NEGATIVE (NEGATIVE); LEUKOCYTE ESTERASE,URINE NEGATIVE (NEGATIVE); NITRITE,URINE NEGATIVE (NEGATIVE); PROTEIN,URINE NEGATIVE (NEGATIVE)
[2018-02-09 01:05] LABS: ALANINE AMINOTRANSFERASE 36 U/L (9-52); ALBUMIN 4.2 g/dL (3.5-5.0); ALKALINE PHOSPHATASE 50 U/L (38-126); ANION GAP 14 (5-19); ASPARTATE AMINO TRANSFERASE 26 U/L (14-36); BILIRUBIN,DIRECT 0.3 mg/dL (0.0-0.4); BILIRUBIN,TOTAL 0.3 mg/dL (0.2-1.3); BLOOD UREA NITROGEN 9 mg/dL (7-20); CALCIUM 9.3 mg/dL (8.4-10.2); CARBON DIOXIDE 24 mmol/L (22-30); CHLORIDE 110 mmol/L (98-107); GLUCOSE 82 mg/dL (75-110); LIPASE 95.4 U/L (23-300); POTASSIUM 3.9 mmol/L (3.6-5.0); SODIUM 147.9 mmol/L (137-145); TOTAL PROTEIN 7.2 g/dL (6.3-8.2)
[2018-02-09] MEDS ORDERED: ACETAMINOPHEN 325 MG TABLET PO ONE (01:21)
[2018-02-09] MEDS ORDERED: OXYCODONE HCL IR 5 MG TABLET PO ONE (02:29)
[2018-02-09] MEDS ORDERED: PROMETHAZINE HCL 25 MG TABLET PO ONE (02:29)
--- NOTE | 2018-02-09 02:30 | ER Document Report ---
ED GI/ - General Chief Complaint: Flank Pain Stated Complaint: ABDOMINAL PAIN Time Seen by Provider: 02/09/18 02:21 Notes: Patient is a 37-year-old female that comes emergency department for chief complaint of pain to her left flank radiating around to her left lower abdomen, symptoms started tonight and she could not sleep, she states she has felt nauseated but she has not vomited. She states she has had urinary hesitancy, no obvious hematuria, denies fever or chills. Reports history of kidney stones 13 years ago, none since. Denies any daily medications. States she saw a cloud security architect and was told that she has a cyst on her left kidney as well. LMP within the past month. TRAVEL OUTSIDE OF THE [place] IN LAST 30 DAYS: No - Related Data Allergies/Adverse Reactions: No Known Allergies Allergy (Verified 06/21/17 10:31) Past Medical History - General Information source: Patient - Social History Smoking Status: Never Smoker Frequency of alcohol use: None Drug Abuse: None Lives with: Family Family History: Hyperlipidemia. denies: Arthritis, CAD, COPD, CVA, DM, Hypertension, Malignancy, Thyroid Disfunction - Past Medical History Cardiac Medical History: Reports: Hx Hypertension - RELATED Denies: Hx Coronary Artery Disease, Hx DVT, Hx Heart Attack, Hx Pulmonary Embolism Pulmonary Medical History: Denies: Hx Asthma, Hx Bronchitis, Hx COPD, Hx Pneumonia Neurological Medical History: Denies: Hx Cerebrovascular Accident, Hx Seizures Renal/ Medical History: Reports: Hx Kidney Stones, Hx Ovarian Cysts. Denies: Hx Peritoneal Dialysis Musculoskeltal Medical History: Denies Hx Arthritis Surgical Hx: Negative - Immunizations Hx Diphtheria, Pertussis, Tetanus Vaccination: Yes Review of Systems - Review of Systems Constitutional: No symptoms reported EENT: No symptoms reported Cardiovascular: No symptoms reported Respiratory: No symptoms reported Gastrointestinal: See HPI Genitourinary: See HPI Female Genitourinary: No symptoms reported Musculoskeletal: No symptoms reported Skin: No symptoms reported Hematologic/Lymphatic: No symptoms reported Neurological/Psychological: No symptoms reported Physical Exam - Vital signs Vitals: Temp Pulse Resp BP Pulse Ox 98.3 F 58 L 20 124/54 L 100 02/08/18 23:55 02/08/18 23:55 02/08/18 23:55 02/08/18 23:55 02/08/18 23:55 - Notes Notes: GENERAL: Alert, interacts well. No acute distress. HEAD: Normocephalic, atraumatic. EYES: Pupils equal, round, and reactive to light. Extraocular movements intact. ENT: Oral mucosa moist, tongue midline. NECK: Full range of motion. Supple. Trachea midline. LUNGS: Clear to auscultation bilaterally, no wheezes, rales, or rhonchi. No respiratory distress. HEART: Regular rate and rhythm. Borderline bradycardia. No murmur ABDOMEN: Soft, non-tender. Non-distended. Bowel sounds present in all 4 quadrants. EXTREMITIES: Moves all 4 extremities spontaneously. No edema, normal radial and dorsalis pedis pulses bilaterally. No cyanosis. BACK: no cervical, thoracic, lumbar midline tenderness. No saddle anesthesia, normal distal neurovascular exam. No noted CVA tenderness. NEUROLOGICAL: Alert and oriented x3. Normal speech. [cranial nerves II through XII grossly intact]. PSYCH: Normal affect, normal mood. SKIN: Warm, dry, normal turgor. No rashes or lesions noted. Course - Re-evaluation Re-evalutation: Laboratory assessment has been completed by triage. CBC does not show leukocytosis, vital signs unremarkable, abdomen very soft. No overt CVA tenderness on exam, patient is well-appearing. After initial medication she denies any symptoms. Chemistry unremarkable, urine shows some hematuria but no infection. Ultrasound was performed, shows no residual cyst, no stones, no hydronephrosis. Patient states that her symptoms were very bad earlier, are now resolved. She possibly passed a stone already. Discussed results, patient will be treated with symptomatic therapy, discussed follow-up, discussed return precautions. Patient states understanding and agreement. - Vital Signs Vital signs: Temp Pulse Resp BP Pulse Ox 98.3 F 55 L 16 122/71 97 02/08/18 23:55 02/09/18 05:58 02/09/18 05:53 02/09/18 05:53 02/09/18 05:58 - Laboratory Result Diagrams: 02/08/18 23:57 02/08/18 23:57 Laboratory results interpreted by me: 02/08/18 02/08/18 02/08/18 23:57 23:57 23:57 Hgb 11.4 L Hct 34.5 L Sodium 147.9 H Chloride 110 H Urine Blood MODERATE H Urine Urobilinogen 2.0 H Urine Ascorbic Acid 20 H Discharge - Discharge Clinical Impression: Flank pain, Nausea Hematuria Qualifiers: Hematuria type: unspecified type Qualified Code(s): R31.9 - Hematuria, unspecified Disposition: HOME, SELF-CARE Additional Instructions: Your ultrasound is normal, no remaining stones are seen in your kidney, no cysts are seen. Your lab work does show some blood in your urine, it is possible that you passed a small stone tonight. Take the medication provided and prescribed if needed, follow-up with primary care. Return if you worsen including fever of 100.4 or greater, vomiting, worsening pain, or any other concerning or worsening symptoms. Prescriptions: Ketorolac Tromethamine [Toradol 10 mg Tablet] 10 mg PO Q8HP PRN #30 tablet PRN Reason: Ondansetron [Zofran Odt 4 mg Tablet] 1 - 2 tab PO Q4H PRN #15 tab.rapdis PRN Reason: For Nausea/Vomiting Forms: Return to Work, Treatment of Relative/Child Referrals: Cortes LOERA MD [ACTIVE STAFF] - Follow up as needed
--- NOTE | 2018-02-09 04:49 | RADIOLOGY REPORT (SQ) ---
EXAM DESCRIPTION: US RETROPERITONEUM LIMITED COMPLETED DATE/TME: 02/09/2018 02:45 CLINICAL HISTORY: left flank pain, hematuria COMPARISON: None. TECHNIQUE: Real-time sonographic images of the retroperitoneum were obtained using a curved multihertz transducer. FINDINGS: The right kidney measures 9.8 cm in length. The left kidney measures 11.4 cm in length. No solid renal mass, shadowing renal calculi, or hydronephrosis. 1.6 cm simple left renal cyst. The urinary bladder is unremarkable. Left ureteral jet identified. IMPRESSION: No acute sonographic abnormality identified. No hydronephrosis.
[2018-02-09] MEDS ORDERED: HYDROCODONE/ACETAMINOPHEN 5-325 MG (6 TAB/ER DISP) PO PRN (05:02)
[2018-02-09 05:55] VITALS: BP 122/71
== END 2018-02-09 05:58 | disposition home or self-care (01) ==
LOC: ER 23:34
DX: R10.9 Unspecified abdominal pain (principal); R31.9 Hematuria, unspecified; R11.0 Nausea; Z87.442 Personal history of urinary calculi
CPT/HCPCS: 36415; 76775; 80053; 81001; 83690; 85025; 99284

== ENCOUNTER → 2018-04-02 | Outpatient (CLI) | payer OTHER ==
[2018-04-02 09:38] LABS: APPEARANCE,URINE CLOUDY; BILIRUBIN,URINE NEGATIVE (NEGATIVE); COLOR,URINE AMBER; GLUCOSE, URINE NEGATIVE (NEGATIVE); KETONES,URINE NEGATIVE (NEGATIVE); LEUKOCYTE ESTERASE,URINE LARGE (NEGATIVE); NITRITE,URINE NEGATIVE (NEGATIVE); PROTEIN,URINE NEGATIVE (NEGATIVE); URINE SPECIFIC GRAVITY 1.027
[2018-04-02 10:09] LABS: ANION GAP 13 (5-19); BLOOD UREA NITROGEN 9 mg/dL (7-20); CALCIUM 9.6 mg/dL (8.4-10.2); CARBON DIOXIDE 25 mmol/L (22-30); CHLORIDE 107 mmol/L (98-107); GLUCOSE 82 mg/dL (75-110); POTASSIUM 4.2 mmol/L (3.6-5.0); SODIUM 145.4 mmol/L (137-145); URIC ACID 4.8 mg/dL (2.5-7.0)
== END ==
LOC: OD 08:51
PROVIDERS: ATTEND Internal Medicine Nephrology
DX: N20.0 Calculus of kidney (principal); R31.9 Hematuria, unspecified
CPT/HCPCS: 36415; 80048; 81001; 84550

== ENCOUNTER 2018-10-17 09:00 | Day surgery (SDC) | payer OTHER ==
[~2018-10-17 09:00] MED LIST: PROPOFOL INJ 200 MG/20 ML VIAL IV ONE
[2018-10-17] MEDS ORDERED: PROPOFOL INJ 200 MG/20 ML VIAL IV ONE ×2 (10:12→10:20)
[2018-10-17 11:04] VITALS: BP 115/62
--- NOTE | 2018-10-17 14:52 | Operative Report ---
Operative Report DATE OF SURGERY: 10/17/18 Operative Report: The risks, benefits and alternatives of the procedure including the risk of bleeding, perforation requiring surgery have been explained to the patient in detail and informed consent has been obtained. The patient is brought back to the endoscopy suite and placed in the left, lateral decubital position. Timeout was called. Propofol medication is administered. Rectal examination is done which did not reveal any masses, tears or fissures. An Olympus videoscope was introduced into the patient's rectum. The prep was poor. The scope could not be advanced past the mid transverse colon just due to the inadequate prep. The scope was then sequentially pulled back through the segment of the colon that were evaluated. While there is no obstruction, the presence of small polyps could not be excluded given the prep. The patient will need to have a re-prep and be rescheduled for another procedure. PREOPERATIVE DIAGNOSIS: Possible colitis rule out Crohn's disease POSTOPERATIVE DIAGNOSIS: Incomplete colonoscopy. Colonoscopy advanced only to the mid transverse colon. Could not evaluate the terminal ileum for biopsies OPERATION: Diagnostic colonoscopy SURGEON: CLARENCE NUÑEZ ANESTHESIA: LMAC TISSUE REMOVED OR ALTERED: None. COMPLICATIONS: None. ESTIMATED BLOOD LOSS: As noted above. INTRAOPERATIVE FINDINGS: As noted. PROCEDURE: Patient tolerated the procedure well. No immediate postprocedure comp occasions are noted. Patient discharged in good condition. Discharge date 10/17/2018. Discharge diet: Regular. Discharge activity: Regular. We will reschedule the patient with alternative prep and repeat procedure.
== END 2018-10-17 11:10 | disposition home or self-care (01) ==
LOC: END 09:00
PROVIDERS: ATTEND Internal Medicine Gastroenterology
DX: K52.9 Noninfective gastroenteritis and colitis, unspecified (principal); I10 Essential (primary) hypertension; I20.9 Angina pectoris, unspecified; Z79.899 Other long term (current) drug therapy; Z79.1 Long term (current) use of non-steroidal anti-inflammatories (NSAID)
CPT/HCPCS: 45378; J2704; 811

== ENCOUNTER 2020-07-22 08:18 | Day surgery (SDC) | payer OTHER, MEDICAID ==
[2020-07-22] MEDS ORDERED: PROPOFOL INJ 200 MG/20 ML VIAL IV ONE (10:16)
[2020-07-22 10:25] VITALS: BP 127/79
--- NOTE | 2020-07-22 11:46 | Operative Report ---
Operative Report DATE OF SURGERY: 07/22/20 Operative Report: The risk, benefits and alternatives of the procedure including the risk of bleeding, perforation requiring surgery have been explained to the patient in detail and informed consent has been obtained. Patient is taken back to the endoscopy suite and placed in the left, lateral decubital position. Timeout was called. Propofol medication is administered. Rectal examination is done which did not reveal any masses, tears or fissures. An Olympus videoscope was introduced into the patient's rectum. Scope was then carefully advanced all the way to the cecum. Cecum was identified by the usual anatomical landmarks of the ileocecal valve as well as the appendiceal office. Photodocumentation is obtained. Scope was then sequentially pulled back via the various segments of the colon including the ascending colon, hepatic flexure, transverse colon, sple ashley flexure, descending colon and finally in to the rectosigmoid portions of the colon. Retroflexion maneuvers performed. PREOPERATIVE DIAGNOSIS: Change of bowel habits POSTOPERATIVE DIAGNOSIS: Biopsies obtained in the terminal ileum to rule out Crohn's disease. biopsies on the right side of the colon to rule out collagenous colitis OPERATION: Colonoscopy with biopsy SURGEON: CLARENCE NUÑEZ ANESTHESIA: LMAC TISSUE REMOVED OR ALTERED: As noted above. COMPLICATIONS: None. ESTIMATED BLOOD LOSS: None. INTRAOPERATIVE FINDINGS: As noted above. PROCEDURE: Patient tolerated the procedure well. No immediate postprocedure complications are noted. Patient is discharged in good condition. Discharge date 07/22/2020. Discharge diet: Regular. Discharge activity: Regular. 2 to 3-week follow-up to discuss findings. Patient is instructed to call the office or proceed to the emergency room should there be any further problems or questions. Wait on the pathology.
== END 2020-07-22 10:45 | disposition home or self-care (01) ==
LOC: END 08:18
PROVIDERS: ATTEND Internal Medicine Gastroenterology
DX: K50.00 Crohn's disease of small intestine without complications (principal); K52.9 Noninfective gastroenteritis and colitis, unspecified; K59.09 Other constipation; M45.9 Ankylosing spondylitis of unspecified sites in spine; Z87.442 Personal history of urinary calculi; Z79.899 Other long term (current) drug therapy; Z79.1 Long term (current) use of non-steroidal anti-inflammatories (NSAID); K64.8 Other hemorrhoids; Z86.79 Personal history of other diseases of the circulatory system
CPT/HCPCS: 45380; 88305 ×2; 00811; J2704; 811

== ENCOUNTER 2020-08-07 07:27 | Day surgery (SDC) | payer OTHER, MEDICAID ==
[2020-08-07] MEDS ORDERED: PROPOFOL INJ 200 MG/20 ML VIAL IV ONE (07:43)
--- NOTE | 2020-08-07 08:48 | Operative Report ---
Operative Report DATE OF SURGERY: 08/07/20 Operative Report: The risks benefits and alternatives of the procedure explained to the patient in detail and informed consent is obtained.A GIF Olympus video scope was inserted into the patient's mouth and hypopharynx ,the esophagus is identified intubated and insufflated ,the scope was then advanced through the esophagus stomach and duodenum, retroflexion maneuver is done, the esophagus stomach and first and second portions of the duodenum examined PREOPERATIVE DIAGNOSIS: Dysphagia POSTOPERATIVE DIAGNOSIS: Trinity esophagitis. Gastritis status post biopsy. Hiatal hernia OPERATION: EGD with biopsy SURGEON: CLARENCE NUÑEZ ANESTHESIA: LMAC TISSUE REMOVED OR ALTERED: As noted above COMPLICATIONS: None. ESTIMATED BLOOD LOSS: None. INTRAOPERATIVE FINDINGS: As noted above. PROCEDURE: Patient tolerated the procedure well. No immediate postprocedure complications are noted. Patient is discharged in good condition. Discharge date 08/07/2020. Discharge diet: Regular. Discharge activity: Regular. 2 to 3-week follow-up to discuss findings. Patient is instructed to call the office or proceed to the emergency room should there be any further problems questions. Wait on the pathology.
[2020-08-07 12:38] VITALS: BP 132/64
== END 2020-08-07 09:20 | disposition home or self-care (01) ==
LOC: END 07:27
PROVIDERS: ATTEND Internal Medicine Gastroenterology
DX: K29.50 Unspecified chronic gastritis without bleeding (principal); B37.81 Candidal esophagitis; K44.9 Diaphragmatic hernia without obstruction or gangrene; Z79.899 Other long term (current) drug therapy
CPT/HCPCS: 43239; 88305 ×2; 00731; J2704; 731